=== PATIENT | female | born 1960 | race Caucasian/White ===

== ENCOUNTER → 2018-05-14 12:03 | Outpatient (CLI) | payer OTHER, SELFPAY ==
[2018-05-14 13:53] LABS: Absolute Lymphocyte Count 1.22 X10^3/ul (0.83-4.51); Absolute Neutrophil Count 4.3 X10^3/uL (2.0-7.7); Basophil# 0.01 X10^3/uL; Basophil% 0.2 % (0-1); Eosinophil# 0.08 X10^3/uL; Eosinophils% 1.3 % (0-5); Hematocrit 43.4 % (37-47); Hemoglobin 14.1 g/dl (12.0-15.0); Lymphocyte # 1.22 X10^3/ul (4.0); Lymphocyte % 20.1 % (19-41); Mean Corp Hgb Conc 32.5 g/gl (32-36); Mean Corpuscular Hgb 30.7 pg (27.0-32.0); Mean Corpuscular Volume 94.6 fL (81-99); Mean Platelet Vol. 13.9 fl (6.2-12.0); Monocyte% 6.6 % (0-10); Platelet Count 77 K/mm3 (150-450); RBC Distribution Width CV 14.9 % (11.6-14.6); RBC Distribution Width SD 50.4 fl (35.1-43.9); Red Blood Count 4.59 M/mm3 (4.2-5.4); White Blood Count 6.1 K/mm3 (4.4-11.0)
[2018-05-14 13:54] LABS: POSITIVE COUNT NO; POSITIVE DIFFERENTIAL NO; POSITIVE MORPHOLOGY NO
[2018-05-14 14:15] LABS: Vitamin B12 555 pg/mL (211-911); Vitamin D,25 Hydroxy 12.8 ng/mL (29.95-100.01)
[2018-05-14 14:22] LABS: AST(SGOT) 22 U/L (15-37); Alanine Aminotransfer ALT/SGPT 49 U/L (13-56); Albumin, Serum 4.1 g/dL (3.2-5.0); Alkaline Phosphatase 127 U/L (45-117); Anion Gap 11 (5-15); BUN 15 mg/dL (7-18); BUN/Creat Ratio 18.2 RATIO (10-20); Calcium,Total 8.9 mg/dL (8.5-10.1); Chloride 105 mmol/L (98-107); Creatinine, Serum 0.83 mg/dL (0.55-1.02); EST Glomerular Filtration Rate 76 mL/min (>60); Est Glom Filt Rate - Afr Amer 91 mL/min (>60); Glucose 117 mg/dL (74-106); Potassium 3.7 mmol/L (3.5-5.1); Protein, Total 8.1 g/dL (6.4-8.2); Sodium Level 141 mmol/L (136-145); Thyroid Stim Hormone (TSH) 1.33 uIU/mL (0.358-3.74)
== END ==
PROVIDERS: Family Provider Family Medicine; PCP Family Medicine; Referring Provider Family Medicine; Visit Provider Family Medicine
DX: D69.6 Thrombocytopenia, unspecified (principal); E03.9 Hypothyroidism, unspecified
CPT/HCPCS: 36415; 80053; 82306; 82607; 84443; 85025

== ENCOUNTER → 2018-11-19 09:51 | Outpatient (CLI) | payer OTHER, SELFPAY ==
[2017-06-24 15:12] VITALS: BMI 29.8
[2018-11-19 10:29] LABS: Absolute Lymphocyte Count 1.42 X10^3/uL (0.83-4.51); Basophil# 0.03 X10^3/uL; Basophil% 0.6 % (0-1); Eosinophil# 0.06 X10^3/uL; Eosinophils% 1.2 % (0-5); Hematocrit 40.3 % (37-47); Hemoglobin 13.2 g/dL (12.0-15.0); Lymphocyte # 1.42 X10^3/ul (4.0); Lymphocyte % 27.6 % (19-41); Mean Corp Hgb Conc 32.8 g/dL (32-36); Mean Corpuscular Hgb 30.6 pg (27.0-32.0); Mean Corpuscular Volume 93.5 fL (81-99); Monocyte# 0.59 X10^3/uL; Monocyte% 11.5 % (0-10); NRBC Flagged by Analyzer 0 % (0-5); Neutrophil # 2.99 X10^3/uL (2.7-7.7); Neutrophil % 58.1 % (47-70); Platelet Count 86 K/mm3 (150-450); RBC Distribution Width CV 15.2 % (11.6-14.6); Red Blood Count 4.31 M/mm3 (4.2-5.4); White Blood Count 5.1 K/mm3 (4.4-11.0)
[2018-11-19 11:26] LABS: ALB/GLOB Ratio 1.1 RATIO (0.9-2.4); AST(SGOT) 28 U/L (15-37); Alanine Aminotransfer ALT/SGPT 41 U/L (13-56); Albumin, Serum 3.9 g/dL (3.2-5.0); Alkaline Phosphatase 139 U/L (45-117); Anion Gap 6 (5-15); BUN 12 mg/dL (7-18); BUN/Creat Ratio 13.7 RATIO (10-20); Calcium,Total 8.9 mg/dL (8.5-10.1); Chloride 106 mmol/L (98-107); Cholesterol 223 mg/dL (200); Creatinine, Serum 0.88 mg/dL (0.55-1.02); EST Glomerular Filtration Rate 70 mL/min (>60); Est Glom Filt Rate - Afr Amer 85 mL/min (>60); Globulin 3.7 g/dL (2.2-4.2); Glucose 111 mg/dL (74-106); High Density Lipoprotein 30 mg/dL; Potassium 4.2 mmol/L (3.5-5.1); Protein, Total 7.6 g/dL (6.4-8.2); Sodium Level 140 mmol/L (136-145); Triglycerides 343 mg/dL; Very Low Density Lipoprotein 69 mg/dL (5-40)
== END ==
PROVIDERS: Family Provider Family Medicine; PCP Family Medicine; Referring Provider Family Medicine; Visit Provider Family Medicine
DX: R10.11 Right upper quadrant pain (principal); E78.00 Pure hypercholesterolemia, unspecified
CPT/HCPCS: 80053; 80061; 85025

== ENCOUNTER → 2018-11-22 08:36 | Outpatient (CLI) | payer OTHER, SELFPAY ==
[2017-06-24 15:12] VITALS: BMI 29.8
--- NOTE | 2018-11-22 08:40 | US_ITS ---
STUDY: ABDOMINAL ULTRASOUND - RIGHT UPPER QUADRANT REASON FOR VISIT: Female, 58 years old. Right upper quadrant pain TECHNIQUE: Ultrasound evaluation of the right upper quadrant was performed with real-time and static murray-scale imaging. TECHNICAL QUALITY: Adequate. COMPARISON: MR abdomen 09/10/2015 and abdominal ultrasound 11/28/2015. FINDINGS: Liver: The liver measures 17 cm. There is increased echogenicity consistent with fatty infiltration. The bile ducts are within normal limits. There is hepatic color flow. The direction of portal flow is hepatopetal. There is a 2.2 x 2.5 x 1.7 cm left hepatic lobe hypoechoic lesion. There is a 1.9 x 2.5 x 1.6 cm right hepatic lobe hypoechoic lesion. Gallbladder: The patient is status post cholecystectomy. Common Bile Duct (C.B.D.): The common bile duct measures 4 mm. Pancreas: Normal size of the head, body and tail of the pancreas. There is normal echogenicity of the pancreas. There is no demonstrated pancreatic mass or cyst. Right Kidney: Normal size of the right kidney. The right kidney measures 11.4 cm. Normal renal cortex. The right cortex measures 1.3 cm. There is no demonstrated renal mass or cyst. There is no right hydronephrosis. US/Abdomen Limited IMPRESSION: 1. Status post cholecystectomy. Normal caliber CBD. 2. Hepatic steatosis. 3. Again seen are scattered hepatic lesions consistent with previous abdominal MRI and ultrasound demonstrating hemangiomas. Electronically Signed: Marilia Melo, at 12:57 EDT Tel , Service support ,
== END ==
PROVIDERS: Family Provider Family Medicine; PCP Family Medicine; Referring Provider Family Medicine; Visit Provider Family Medicine
DX: R10.11 Right upper quadrant pain (principal)
CPT/HCPCS: 76705

== ENCOUNTER → 2019-02-18 07:04 | Outpatient (CLI) | payer OTHER, SELFPAY ==
[2019-02-18 10:11] LABS: Erythrocyte Sedimentation Rate 7 mm/hr (0-30)
[2019-02-18 10:30] LABS: Vitamin D,25 Hydroxy 21.8 ng/mL (29.95-100.01)
[2019-02-18 10:31] LABS: CRP 3.81 mg/L (0.0-3.0); Rheumatoid Factor < 10.0 IU/mL (<15)
[2019-02-21 16:31] LABS: ANTINUCLEAR ANTIBODIES DIRECT Negative (Negative)
== END ==
PROVIDERS: Family Provider Family Medicine; PCP Family Medicine; Referring Provider Family Medicine; Visit Provider Family Medicine
DX: E55.9 Vitamin D deficiency, unspecified (principal)
CPT/HCPCS: 36415; 82306; 84443; 85652; 86038; 86140; 86431

== ENCOUNTER → 2019-11-22 13:32 | Outpatient (CLI) | payer OTHER, SELFPAY ==
[2019-04-11 17:09] VITALS: BMI 29.8
--- NOTE | 2019-11-22 13:35 | VDLE_ITS ---
Reason For Study: pain in calf Procedure LEFT Exam performed in department. GSV is normal. The exam was diagnostic. CFV is compressible, spontaneous, phasic, A preliminary report was called and/or faxed competent, and demonstrates normal to Dr. Dove. augmentation. FV is compressible, spontaneous, phasic, competent and demonstrates normal augmentation. POP V is compressible, spontaneous, phasic, competent and demonstrates normal augmentation. T/P Trunk is compressible. PTV is compressible. LT PerV is compressible. Interpretation Summary Deep veins of the left lower extremity are patent and compressible segmentally. There is no evidence of left lower extremity deep vein thrombosis. Valvular competence appears intact within the proximal deep venous system on the left . The left great saphenous vein appears patent and compressible segmentally. Ordering Physician: Deuce Dove Performed By: Beny Kemp RVT
== END ==
PROVIDERS: PCP Family Medicine; Referring Provider Family Medicine; Visit Provider Family Medicine
DX: M79.662 Pain in left lower leg (principal)
CPT/HCPCS: 93971

== ENCOUNTER 2019-12-13 17:00 | Outpatient (RCR) | payer OTHER, SELFPAY ==
[2019-04-11 17:09] VITALS: BMI 29.8
--- NOTE | 2019-12-01 08:34 | HP.PTEVAL ---
Patient's Visit Information VALDEZ HERNANDEZ is a 59 year old F referred to Physical Therapy by Dr. Deuce Dove MD with a diagnosis of Left Gastroc Strain. Date of Evaluation: 11/30/19 Physical Therapist: Shereen Carlin DPT - Visit Plan Frequency: 2x /Week Duration: 4 Weeks - Subjective She reports that about a month ago- she climbs step stools at home- stepped off and it was further down than the anticipated. Pain on the left calf- a few weeks later- she jumped backwards and had excrutiating pain in the left calf. She hobbled around- iced it used biofreeze. She put it off for awhile- bruising all the way down but it was getting better. It just started hurting more and more- its now painful enough that she babies it. Pain is located along the whole calf and radiates to the anterior medial. Had a dopplar to rule out a blood clot- which was negative. Has good days and bad days. Worst: 3/10. Agg: going up stairs, pushing up the ramp in a w/c, turning- describes the pain as achy and cramping and other time its pretty sharp. Best: 0/10 Eases: biofreeze, ice and elevation. No radiating pain- A few times has N/T but it comes and goes. Shoes- sandles with good arch support- at home she wears flip flops that do bother her. 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 Sleep: not disturbed at this time. No images- PMHx: thyroid, ITP, Factor 5 Meds: synthroid. - Objective Posture: FH, RS, increased kyphosis. Gait: slightly antalgic- decreased stance ont he left LE poor heel/toe pattern. HR/TR: able with slight weight shift to the right with discomfort. Stairs: asc/desc 8 recip- pain with push off. SLS: 30 sec without LOB. ROM: DF: neutral with discomfort and tightness at end range, PF: 60 degrees Inver: 40 degrees Ever: 30 degrees, Knee: WNL. Strength: Ankle: DF: 4/5, PF: 4/5, Inver: 5/5, Ever: 5/5, Knee: 4+/5, Hip: 5/5. Flex: Gastroc: severe, Soleus: moderate, Hamstring: moderate. Palpatoin: tender throughout calf musculature- significant tenderness and trigger points throughout proximal gastroc. - Goals Goal 1:: Patient will be I with HEP and progression Goal Time Frame: 4-6 Weeks Goal 2:: Patient will ambulate >300 feet with a normalized gait pattern Goal Time Frame: 4-6 Weeks - Rehabilitation Potential Physical Therapy Diagnosis: Patient presents with hypomobility- she has decreased ROM,strength, flex and muscular endurance leading to abnormal gait and increased pain with ADL's. Rehabilitation Potential: Fair - Anticipated Interventions Thank you for the opportunity to evaluate your patient. For Medicare and Medicare HMO plans, please review the plan of care and approve it. It will need to be FAXED BACK to us at [phone] for Medicare purposes. For Medicare only, by signing this I certify the plan of care. Please let me know if there are questions or concerns regarding this plan of care. Physician Signature: Date:
--- NOTE | 2020-03-15 10:45 | HP.PTDCNRP_ITS ---
VALDEZ HERNANDEZ was seen in my office for initial evaluation on 11/30/19. The following Plan of Care was established for this patient: Initial Frequency: 2x /Week Initial Duration: 4 Weeks This patient was last seen in our office . Pertinent comments regarding their Physical therapy will appear below: Patient has not returned to PT in over 3 months- appropriate for discharge and return to MD for further evaluation. At this point I will be discontinuing this patient from physical therapy. I wou ld be happy to see this patient again in the future if found appropriate by the physician. Thank you! Shereen Carlin, HALIT
== END 2019-12-13 19:00 | disposition home or self-care (01) ==
LOC: PT 17:00
PROVIDERS: PCP Family Medicine; Referring Provider Family Medicine; Visit Provider Family Medicine
DX: S86.112D Strain of other muscle(s) and tendon(s) of posterior muscle group at lower leg level, left leg, subsequent encounter (principal)
CPT/HCPCS: 97035; 97110; 97140; 97161

== ENCOUNTER → 2019-12-24 09:39 | Outpatient (CLI) | payer OTHER, SELFPAY ==
[2019-04-11 17:09] VITALS: BMI 29.8
[2019-12-24 10:02] LABS: Absolute Neutrophil Count 3.8 X10^3/uL (2.0-7.7); Basophil# 0.03 X10^3/uL; Basophil% 0.5 % (0-1); Eosinophil# 0.06 X10^3/uL; Hematocrit 41.9 % (37-47); Hemoglobin 13.3 g/dL (12.0-15.0); Mean Corp Hgb Conc 31.7 g/dL (32-36); Mean Corpuscular Volume 94.4 fL (81-99); Mean Platelet Vol. 13.1 fl (6.2-12.0); Monocyte# 0.43 X10^3/uL; Monocyte% 7.4 % (0-10); NRBC Flagged by Analyzer 0 % (0-5); Neutrophil # 3.84 X10^3/uL (2.7-7.7); Neutrophil % 65.7 % (47-70); POSITIVE COUNT YES; Platelet Count 90 K/mm3 (150-450); RBC Distribution Width CV 15.2 % (11.6-14.6); Red Blood Count 4.44 M/mm3 (4.2-5.4); White Blood Count 5.8 K/mm3 (4.4-11.0)
[2019-12-24 10:36] LABS: Anion Gap 5 (5-15); BUN 16 mg/dL (7-18); BUN/Creat Ratio 19.2 RATIO (10-20); Calcium,Total 9.1 mg/dL (8.5-10.1); Chloride 102 mmol/L (98-107); Cholesterol 240 mg/dL (200); Creatinine, Serum 0.83 mg/dL (0.55-1.02); EST Glomerular Filtration Rate 74 mL/min (>60); Est Glom Filt Rate - Afr Amer 90 mL/min (>60); Glucose 102 mg/dL (74-106); High Density Lipoprotein 40 mg/dL; Sodium Level 138 mmol/L (136-145); Thyroid Stim Hormone (TSH) 2.52 uIU/mL (0.358-3.74); Triglycerides 282 mg/dL; Very Low Density Lipoprotein 56 mg/dL (5-40)
== END ==
PROVIDERS: PCP Family Medicine; Referring Provider Family Medicine; Visit Provider Family Medicine
DX: Z13.220 Encounter for screening for lipoid disorders (principal); Z13.1 Encounter for screening for diabetes mellitus; E03.9 Hypothyroidism, unspecified; D69.6 Thrombocytopenia, unspecified
CPT/HCPCS: 36415; 80048; 80061; 84443; 85025

== ENCOUNTER → 2020-01-09 17:19 | Outpatient (CLI) | payer OTHER, SELFPAY ==
[2019-04-11 17:09] VITALS: BMI 29.8
--- NOTE | 2020-01-09 17:21 | RAD_ITS ---
STUDY: X-RAY - SKULL REASON FOR EXAM: Female, 59 years old. Mass on right upper side of the skull, tender to touch. Has been present for years. TECHNIQUE: 3 view(s) of the skull were obtained. COMPARISON: None. FINDINGS: There is no demonstrated soft tissue swelling. Normal osseous calvarium. Area of mildly increased density overlying the upper parietal skull on the lateral view which cannot be identified on other images. Normal visualized facial bones. Normal visualized paranasal sinuses. RAD/Skull less than 4 Views IMPRESSION: Normal x-ray examination of the skull. Electronically Signed: Stephane Bhat DO at 17:05 EDT Tel [phone], Service support ,
== END ==
PROVIDERS: PCP Family Medicine; Referring Provider Family Medicine; Visit Provider Family Medicine
DX: R22.0 Localized swelling, mass and lump, head (principal)
CPT/HCPCS: 70250

== ENCOUNTER → 2020-01-17 09:08 | Outpatient (CLI) | payer OTHER, SELFPAY ==
[2019-04-11 17:09] VITALS: BMI 29.8
--- NOTE | 2020-01-17 18:12 | TILTTABLE_ITS ---
- Staff Staff: Xiomara Burleson, - - Mary Morrell - Summary Pre Test Resting HR: 86 - Alert and oriented: Warm and dry Pre Test Resting BP: 149/88 - Alert and oriented: Warm and dry Minimum Test HR: 81 - Alert and oriented: Warm and dry Maximum Test HR: 96 - Alert and oriented: Warm and dry Minimum Test BP: 126/85 - Alert and oriented: Hands cool Maximum Test BP: 163/93 - Alert and oriented: Warm and dry Reason for Test Termination: Reached Maximum Test Time Physician Tilt Table Report - Patient's Physicians Primary Care Physician: Deuce Dove Vice President Quality: Karson Le Indications/Diagnosis: Presyncope Procedure Comments: The patient presented to the tilt table laboratory and was alert and oriented and warm and dry. The baseline heart rate was 86 bpm with a baseline blood pressure 149/88 mmHg. The cardiac rhythm appeared to be normal sinus rhythm. The patient was placed in the 70 degree upright tilt table position for approximately 30 minutes. The patient remained alert and oriented. The minimal heart rate was 81 bpm and the minimal blood pressure was reported at 126/85 mmHg (at which time the patient was reported as her hands were cool) with a maximal heart rate of 96 bpm and a maximal blood pressure of 163/93 mmHg. The cardiac rhythm remained normal sinus rhythm with an isolated PVC. The patient did not lose consciousness. The patient did complain during this portion of the examination of a headache. The patient was returned to the supine position where she remained alert and oriented. The concluding heart rate was 89 bpm with a concluding blood pressure 155/86 mmHg. The patient's cardiac rhythm remained sinus rhythm. Summary: 70 degree upright tilt table study considered negative for reproducible near syncope/syncope. This note was generated using a voice recognition system and there may be incorrect words, spelling or punctuation that were not noted when reviewing the office note prior to saving.
[2020-01-17 18:19] VITALS: BP 126/85; BP 149/88; BP 163/93
== END ==
PROVIDERS: PCP Family Medicine; Referring Provider Family Medicine; Visit Provider Family Medicine
DX: R55 Syncope and collapse (principal)
CPT/HCPCS: 93660; J7040; A4216

== ENCOUNTER → 2020-01-20 08:59 | Outpatient (CLI) | payer OTHER, SELFPAY ==
[2019-04-11 17:09] VITALS: BMI 29.8
--- NOTE | 2020-01-20 09:09 | AAVD_ITS ---
Reason For Study: Family Hx of AAA Aorta Measurements Aorta Doppler Measurements Proximal aorta measures1.43 x 1.45cm. in cross- Peak systolic flow velocities within the proximal sectional axis. aorta measure 90.6 cm/sec. Proximal aorta measures1.43cm. in longitudinal Peak systolic flow velocities within the mid aorta axis. measure 107 cm/sec. Mid aorta measures1.06 x 1.03cm. in cross- Peak systolic flow velocities within the distal sectional axis. aorta measure 121.6 cm/sec. Mid aorta measures1.03cm. in longitudinal axis. Distal aorta measures1.20 x 1.21cm. in cross- sectional axis. Distal aorta measures1.19cm. in longitudinal axis. Left Iliac Artery Left iliac artery measures 0.70 x 0.70 cm. in the cross-sectional axis. Left iliac artery measures 0.73 cm. in the longitudinal axis. Peak systolic velocity in the left iliac artery measures 97.9 cm/sec. Right Iliac Artery Right iliac artery measures 0.80 x 0.80 cm. in the cross-sectional axis. Right iliac artery measures 0.80 cm. in the longitudinal axis. Peak systolic velocity in the right iliac artery measures 107 cm/sec. Procedure Aorta IVC Iliac vasculature or bypass grafts [id number]. Interpretation Summary The dimensions of the intra-abdominal aorta are normal, without evidence of aneurysmal dilatation. The iliac arteries appear normal in size bilaterally. The intra-abdominal aorta and iliac arteries appear patent, demonstrating normal, pulsatile arterial flow and normal peak systolic velocities. Ordering Physician: Deuce Dove Referring Physician: Deuce Dove Performed By: Dea Bryan RVT
== END ==
PROVIDERS: PCP Family Medicine; Referring Provider Family Medicine; Visit Provider Family Medicine
DX: Z82.49 Family history of ischemic heart disease and other diseases of the circulatory system (principal)
CPT/HCPCS: 93978

== ENCOUNTER → 2020-01-21 09:41 | Outpatient (CLI) | payer OTHER, SELFPAY ==
[2019-04-11 17:09] VITALS: BMI 29.8
--- NOTE | 2020-01-21 07:33 | US_ITS ---
HISTORY: RIGHT SCALP MASS AREA OF PALPABLE LUMP ADDITIONAL HISTORY: None provided. COMPARISON: Skull radiographs 01/09/2020 TECHNIQUE: High-resolution grayscale and color Doppler sonography of the region of clinical concern in the right scalp. Number of images including paperwork: 9 FINDINGS: A 4 x 2 x 2 mm cystic lesion is seen in the region of the palpable concern. US/Head/Neck Soft Tissue IMPRESSION: Small cyst in the region of clinical concern, possibly an epidermal cyst. at 1859 Reported and signed by: Mary Miner MD Electronically Signed: Mary Miner MD at 18:59 EDT Tel , Service support ,
== END ==
PROVIDERS: PCP Family Medicine; Referring Provider Family Medicine; Visit Provider Family Medicine
DX: R22.0 Localized swelling, mass and lump, head (principal)
CPT/HCPCS: 76536

== ENCOUNTER → 2020-01-23 08:41 | Outpatient (CLI) | payer OTHER, SELFPAY ==
[2019-04-11 17:09] VITALS: BMI 29.8
[2020-01-23 11:04] LABS: Vitamin D,25 Hydroxy 20.7 ng/mL
== END ==
PROVIDERS: PCP Family Medicine; Visit Provider Family Medicine
DX: E55.9 Vitamin D deficiency, unspecified (principal)
CPT/HCPCS: 36415; 82306

== ENCOUNTER → 2020-03-08 14:15 | Outpatient (CLI) | payer OTHER, SELFPAY ==
[2019-04-11 17:09] VITALS: BMI 29.8
== END ==
PROVIDERS: PCP Family Medicine; Visit Provider Family Medicine
DX: U07.1 COVID-19 (principal)
CPT/HCPCS: 87635; U0003

== ENCOUNTER 2020-03-20 17:50 | Emergency (ER) | payer OTHER, SELFPAY ==
[2019-04-11 17:09] VITALS: BMI 29.8
[2020-03-20] VITALS (7 sets, daily range): BP systolic 115–128; BP diastolic 54–87; PULSE 77–86; RESP 15–21; TEMP 36.6–37; O2SAT 94–100; BMI 29.8
--- NOTE | 2020-03-20 18:24 | EKG12_ITS ---
Test Reason : GEN ILLNESS Blood Pressure : / mmHG Vent. Rate : 071 BPM Atrial Rate : 071 BPM P-R Int : 142 ms QRS Dur : 080 ms QT Int : 406 ms P-R-T Axes : 046 007 011 degrees QTc Int : 441 ms Normal sinus rhythm Normal ECG Confirmed by LYNNETTE STONE, JORGE ALBERTO ([id number]), newspaper photo editor DADA DEWITT ([id number]) on 03/28/2020 10:10:40 AM Referred By: HYACINTH Confirmed By:CEDRICK CHURCH MD
--- NOTE | 2020-03-20 18:28 | ED.VIS.GEN ---
History of Present Illness Chief Complaint: General Illness Informant: Patient Narrative: 59-year-old female presenting with shortness of breath and difficulty swallowing. Has been able to get food and fluids in her although it is difficult. This is a new problem since she has been ill she is already finished her Covid?19 quarantine. She is concerned she is dehydrated. Her primary care doctor sent her in for lab work and a chest x-ray. She said she still having fevers up until 2 days ago but these are now broken. He has mild nausea. She is not having chest pain. She no longer has any chills or myalgias. - Past Medical History (1) Chronic ITP (idiopathic thrombocytopenia) Status: Chronic (2) Factor 5 Leiden mutation, heterozygous Status: Chronic Past Medical History - Allergies and Home Meds Allergies/Adverse Reactions: Allergies hexachlorophene [From Phisohex] Allergy (Verified 03/20/20 17:56) Itching codeine Adverse Reaction (Verified 03/20/20 17:56) Chest tightness nitrofurantoin macrocrystalline [From Macrodantin] Adverse Reaction (Verified 03/20/20 17:56) Nausea Primary Care Physician: Deuce Dove MD [Primary Care Provider] - Prior records reviewed: Yes Past Medical History: - - Reviewed in problem list Surgical History: noncontributory Lives: Spouse/ Significant Other Smoking Status: Never smoker Alcohol: None Drugs: None Review of Systems General: Reports: Fever, Malaise Eyes: Denies: Visual changes - bilaterally, Diplopia ENT: Reports: - - If occult he swallowing.. Denies: Rhinorrhea, Sore throat Cardiovascular: Denies: Chest pain, Palpitations Respiratory: Reports: Dyspnea, Cough. Denies: Dyspnea on exertion Gastrointestinal: Denies: Abdominal pain, Nausea, Vomiting, Diarrhea, Melena, Hematochezia Genitourinary: Denies: Dysuria, Hematuria, Frequency Musculoskeletal: Denies: Back pain, Extremity Pain Skin: Denies: Rash, Wounds Neurological: Denies: Headache, Parasthesia, Numbness Psych: Denies: Depression, Anxiety Physical Exam Vital Signs/Narrative: Vital Signs Temp Pulse Resp BP Pulse Ox 03/20/20 17:59 98 F 79 20 H 128/55 H 100 03/20/20 17:51 98.6 F 81 20 H 128/55 H 96 Inital Vital Signs reviewed: Yes General: Well nourished, No Acute Distress Head: Normocephalic, Atraumatic Eyes: Perrl, EOMI ENT: Moist mucous membranes, No rhinorrhea Cardiovascular: Regular rate, Regular rhythm Respiratory: No distress, CTA bilaterally, Chest nontender Extremities: Nontender, No edema Skin: Normal color, No rash. Negative for: Cyanosis, Diaphoresis Neurological: Alert, Oriented x3, Cranial nerves II-XII grossly intact, - - NIH = 0 Psychological: Normal affect Diagnostic/Tx/Re-eval Clinical Impression(s) from Imaging Studies Chest X-Ray 03/20/20 18:42 IMPRESSION: Moderate bilateral interstitial infiltrates Electronically Signed: Albert Evans MD at 19:29 EST , Service support , Soft Tissue Neck X-Ray 03/20/20 18:42 IMPRESSION: Calcification of laryngeal cartilages versus residual oral contrast versus foreign body. CT soft tissue neck recommended. Electronically Signed: Albert Evans MD at 19:51 EST , Service support , Brain CT 03/20/20 18:45 IMPRESSION: Normal unenhanced CT scan of the brain. Electronically Signed: Albert Evans MD at 19:25 EST , Service support , Chest CTA 03/20/20 19:11 IMPRESSION: Multifocal opacities typical for covid 19 other etiologies not excluded. Coronary artery disease. Incidental Hepatic mass. Recommend follow-up hepatic MRI to exclude neoplasm. Electronically Signed: Albert Evans MD at 19:59 EST , Service support , Soft Tissue Neck CT 03/20/20 20:14 IMPRESSION: Coarse calcification of the laryngeal cartilages. No radiodense foreign body. Bilateral pulmonary infiltrates typical for covid 19. Electronically Signed: Albert Evans MD at 20:57 EST , Service support , Laboratory Data 03/20/20 03/20/20 03/20/20 18:00 18:00 18:00 WBC RBC Hgb Hct MCV MCH MCHC RDW Std Deviation RDW Coeff of Mckenzie Plt Count MPV Immature Gran % (Auto) Neut % (Auto) Lymph % (Auto) [place] % (Auto) Eos % (Auto) Baso % (Auto) Absolute Neuts (auto) Absolute Lymphs (auto) Nucleated RBC % Atypical Lymphocytes D-Dimer Quant (PE/DVT) 1.94 H* Sodium 139 Potassium 3.2 L Chloride 104 Carbon Dioxide 26.0 Anion Gap 9 BUN 11 Creatinine 0.78 Estim Creat Clear Calc 61.42 Est GFR (MDRD) Af Amer 97 Est GFR (MDRD) Non-Af 80 BUN/Creatinine Ratio 14.1 Glucose 88 Calcium 8.1 L Total Bilirubin 1.00 AST 77 H ALT 104 H Alkaline Phosphatase 101 Troponin I < 0.015 Total Protein 7.3 Albumin 2.6 L Globulin 4.7 H Albumin/Globulin Ratio 0.6 L Procalcitonin 0.09 03/20/20 18:00 WBC 5.5 RBC 3.95 L Hgb 11.5 L Hct 35.9 L MCV 90.9 MCH 29.1 MCHC 32.0 RDW Std Deviation 48.2 H RDW Coeff of Mckenzie 14.4 Plt Count 164 MPV 13.8 H Immature Gran % (Auto) 2.700 H Neut % (Auto) 66.8 Lymph % (Auto) 20.7 [place] % (Auto) 7.7 Eos % (Auto) 1.6 Baso % (Auto) 0.5 Absolute Neuts (auto) 3.6 Absolute Lymphs (auto) 1.13 Nucleated RBC % 0.5 Atypical Lymphocytes 1+ D-Dimer Quant (PE/DVT) Sodium Potassium Chloride Carbon Dioxide Anion Gap BUN Creatinine Estim Creat Clear Calc Est GFR (MDRD) Af Amer Est GFR (MDRD) Non-Af BUN/Creatinine Ratio Glucose Calcium Total Bilirubin AST ALT Alkaline Phosphatase Troponin I Total Protein Albumin Globulin Albumin/Globulin Ratio Procalcitonin - Rhythm Strip Rhythm Strip: Sinus Rhythm Rate: 71 - EKG Initial EKG Interpretation: Sinus Rhythm, No Acute Injury Pattern - Medical Decision Making 59-year-old female presenting for evaluation after recovering from her quarantine after having Covid?19. Patient states that her fever stopped being a problem a couple of days ago. She does not have vomiting but has difficulty swallowing. She has difficulty especially with pills and liquids. She has been able to get some down but she has to force it. Her primary care sent her in for evaluation. Patient does have some residual shortness of breath. I obtained an EKG which is normal sinus rhythm at 71 bpm without ischemic change as interpreted by myself. Chest x-ray as interpreted by myself and the radiologist shows bilateral multifocal infiltrates. Lab work shows normal renal function. CBC shows no leukocytosis. Procalcitonin negative. D-dimer was elevated and she had CTA of the chest which was significant only for multifocal pneumonia. This is likely residual from her Covid?19. I did obtain a CT of the brain given her difficulty swallowing. Her NIH was 0. The CT was negative for acute process. I do not believe she needs to be admitted for further work-up of stroke. Patient had x-ray of the soft tissue of the neck which the radiologist read as calcifications versus foreign body versus residual contrast. Since the patient is having difficulty swallowing I did follow-up with a CT of the left tissues of the neck which was normal. Patient will be discharged home with her daughter. She will be given Zofran to see if that helps her eat. Patient will follow up with her primary care physician. Patient discharged in stable condition. Impression: 1. History of Covid?19 pneumonia 2. Dysphagia 3. Concern for dehydration ED Disposition - Plan for ED Patient: Referrals: Deuce Dove MD [Primary Care Provider] -
--- NOTE | 2020-03-20 18:42 | RAD_ITS ---
STUDY: X-RAY - SOFT TISSUE NECK REASON FOR EXAM: Female, 59 years old. PT QUARANTINE FOR COVID ENDED YESTERDAY. HAVING SOB, COUGH, FEVER, AND DIFFICULTY SWALLOWING. TECHNIQUE: 2 view(s) of the neck were obtained. COMPARISON: None. FINDINGS: Irregular radiodensities noted along the arytenoids thyroid cricoid cartilage. Normal visualized nasopharynx, oropharynx, hypopharynx. Normal epiglottis. Normal visualized subglottic tracheal air column. Normal prevertebral soft tissue structures. Normal visualized osseous structures. The soft tissue structures are unremarkable. RAD/Neck for Soft Tissue IMPRESSION: Calcification of laryngeal cartilages versus residual oral contrast versus foreign body. CT soft tissue neck recommended. Electronically Signed: Albert Evans MD at 19:51 EST , Service support ,
--- NOTE | 2020-03-20 18:42 | RAD_ITS ---
STUDY: X-RAY CHEST REASON FOR EXAM: Female, 59 years old. PT QUARANTINE FOR COVID ENDED YESTERDAY. HAVING SOB, COUGH, FEVER, AND DIFFICULTY SWALLOWING. TECHNIQUE: Single frontal view of the chest. COMPARISON: 09/19/2015 FINDINGS: Bilateral interstitial infiltrates. There is no demonstrated pleural abnormality. Normal size heart. Normal mediastinum and talha. Normal visualized pulmonary arteries. Normal visualized aortic arch and descending thoracic aorta. Normal visualized thoracic spine. Normal visualized ribs, clavicles, and shoulders. There is no demonstrated abnormality of the visualized soft tissue structures of the upper abdomen. RAD/Chest 1 View (Portable) IMPRESSION: Moderate bilateral interstitial infiltrates Electronically Signed: Albert vEans MD at 19:29 EST , Service support ,
[2020-03-20 18:44] LABS: D-Dimer Quantitative (DVT/PE) 1.94 FEU/ug/m (0.27-0.49)
--- NOTE | 2020-03-20 18:45 | CT_ITS ---
STUDY: CT BRAIN WITHOUT CONTRAST REASON FOR EXAM: Female, 59 years old. SOB, COUGH, FEVER AND DIFFICULTY SWALLOWING RADIATION DOSAGE (If Supplied By Facility): CTDIvol = ( 44.99 ) mGy, DLP = ( 779.24 ) mGycm TECHNIQUE: Transaxial CT imaging of the brain was performed without administration of intravenous contrast material. Individualized dose optimization techniques were used for this CT. COMPARISON: No relevant priors. FINDINGS: Normal soft tissue structures. Normal calvarium. 2 small calcific enostosis along the inner table on the right parietal calvarium. Normal size ventricles and extra-axial spaces for the patient''s age. Normal white matter tracts of the cerebral hemispheres. Normal basal ganglia and thalami. Normal brainstem. Normal cerebellum. There is no intracranial hemorrhage. There are no findings of an acute ischemic infarction. Normal visualized paranasal sinuses. CT/Brain/Head without Contrast IMPRESSION: Normal unenhanced CT scan of the brain. Electronically Signed: Albert Evans MD at 19:25 EST , Service support ,
[2020-03-20 18:48] LABS: ALB/GLOB Ratio 0.6 RATIO (0.9-2.4); AST(SGOT) 77 U/L (15-37); Alanine Aminotransfer ALT/SGPT 104 U/L (13-56); Albumin, Serum 2.6 g/dL (3.2-5.0); Alkaline Phosphatase 101 U/L (45-117); Anion Gap 9 (5-15); BUN 11 mg/dL (7-18); BUN/Creat Ratio 14.1 RATIO (10-20); Calcium,Total 8.1 mg/dL (8.5-10.1); Chloride 104 mmol/L (98-107); Creatinine, Serum 0.78 mg/dL (0.55-1.02); EST Glomerular Filtration Rate 80 mL/min (>60); Est Glom Filt Rate - Afr Amer 97 mL/min (>60); Estimated Creatinine Clearance 61.42 ml/min; Globulin 4.7 g/dL (2.2-4.2); Glucose 88 mg/dL (74-106); Potassium 3.2 mmol/L (3.5-5.1); Protein, Total 7.3 g/dL (6.4-8.2); Sodium Level 139 mmol/L (136-145)
[2020-03-20 18:57] LABS: Procalcitonin 0.09 ng/mL (0.00-0.09)
[2020-03-20] MEDS: Ondansetron 4 MG/2 ML Vial IV (19:11)
--- NOTE | 2020-03-20 19:11 | CT_ITS ---
STUDY: CTA CHEST REASON FOR EXAM: Female, 59 years old. SOB,FEVER,COUGH AND DIFFICULTY SWALLOWING RADIATION DOSAGE (If Supplied By Facility): CTDIvol = ( 10.66 ) mGy, DLP = ( 355.21 ) mGycm TECHNIQUE: The examination was performed with the intravenous administration of IV 100mL [id number]-[id number]. Post-processing of the angiographic images was performed, with multiplanar reformation and 3D reconstruction. Individualized dose optimization techniques were used for this CT. COMPARISON: Chest x-ray 03/20/2020 and CTA chest 08/24/2013 FINDINGS: Normal enhancement of the main pulmonary artery and right and left pulmonary arteries. Normal enhancement of the bilateral peripheral pulmonary arteries. There is no demonstrated pulmonary embolism. Normal thoracic aorta and visualized great vessels. There is no demonstrated aortic dissection. Normal heart and pericardium. Calcific coronary artery disease. Normal mediastinum. Normal hilar regions. Normal visualized trachea and bronchi. Bilateral peripheral groundglass multifocal opacities. Normal pulmonary parenchyma. Normal pleura. Normal chest wall structures. Normal osseous structures. 3.4 cm exophytic mass right lobe of the liver. CT/CTA Chest W/WO Contrast IMPRESSION: Multifocal opacities typical for covid 19 other etiologies not excluded. Coronary artery disease. Incidental Hepatic mass. Recommend follow-up hepatic MRI to exclude neoplasm. Electronically Signed: Albert Evans MD at 19:59 EST , Service support ,
[2020-03-20 20:14] LABS: Absolute Lymphocyte Count 1.13 X10^3/uL (0.83-4.51); Absolute Neutrophil Count 3.6 X10^3/uL (2.0-7.7); Basophil# 0.03 X10^3/uL; Basophil% 0.5 % (0-1); Eosinophil# 0.09 X10^3/uL; Eosinophils% 1.6 % (0-5); Hematocrit 35.9 % (37-47); Hemoglobin 11.5 g/dL (12.0-15.0); Lymphocyte # 1.13 X10^3/ul (4.0); Lymphocyte % 20.7 % (19-41); Mean Corpuscular Hgb 29.1 pg (27.0-32.0); Mean Corpuscular Volume 90.9 fL (81-99); Mean Platelet Vol. 13.8 fl (6.2-12.0); Monocyte# 0.42 X10^3/uL; Monocyte% 7.7 % (0-10); NRBC Flagged by Analyzer 0.5 % (0-5); Neutrophil # 3.64 X10^3/uL (2.7-7.7); Neutrophil % 66.8 % (47-70); POSITIVE MORPHOLOGY YES; Platelet Count 164 K/mm3 (150-450); RBC Distribution Width CV 14.4 % (11.6-14.6); RBC Distribution Width SD 48.2 fl (35.1-43.9); Red Blood Count 3.95 M/mm3 (4.2-5.4); White Blood Count 5.5 K/mm3 (4.4-11.0)
--- NOTE | 2020-03-20 20:14 | CT_ITS ---
STUDY: CT SOFT TISSUE NECK WITHOUT CONTRAST REASON FOR EXAM: Female, 59 years old. DIFFICULTY SWALLOWING/ABN XRAY RADIATION DOSAGE (If Supplied By Facility): CTDIvol = ( 17.07 ) mGy, DLP = ( 481.83 ) mGycm TECHNIQUE: The patient was scanned in a multi-detector CT scanner. High resolution transaxial imaging was performed without the administration of intravenous contrast material. Sagittal and coronal images were reconstructed. Individualized dose optimization techniques were used for this CT. COMPARISON: Soft tissue neck from today FINDINGS: Normal bilateral parotid glands. Normal bilateral statuary painter spaces. Normal bilateral parapharyngeal spaces. Normal bilateral carotid spaces. Normal bilateral sublingual and submandibular glands and spaces. Normal visualized nasopharynx. Normal retropharyngeal space. Normal perivertebral space. Normal visualized bilateral faucial tonsils. The visualized tongue, tongue base and oropharynx are normal. The visualized cervical lymph nodes (levels I-) are within normal size limits, and maintain normal morphology. There is no demonstrated solid or cystic mass lesion. Normal epiglottis, bilateral vallecula and hypopharynx. The pre-epiglottic and paraglottic adipose spaces are normal. Normal visualized bilateral piriform sinuses, aryepiglottic folds, vocal cords, and arytenoid-cricoid articulations. Normal subglottic trachea. Normal bilateral lobes of the thyroid gland. Bilateral peripheral groundglass infiltrates. Normal visualized paranasal sinuses. Normal visualized cervical spine. CT/Soft Tissue Neck without Contr IMPRESSION: Coarse calcification of the laryngeal cartilages. No radiodense foreign body. Bilateral pulmonary infiltrates typical for covid 19. Electronically Signed: Albert Evans MD at 20:57 EST , Service support ,
[2020-03-20 20:26] LABS: Differential Indicated SCAN CRITERIA MET
[2020-03-20 20:41] LABS: Atypical Lymphocyte 1+ %
== END 2020-03-20 21:36 | disposition home or self-care (01) ==
PROVIDERS: Emergency Provider Student in an Organized Health Care Education/Training Program; PCP Family Medicine
DX: R06.02 Shortness of breath (principal); R13.10 Dysphagia, unspecified; R16.0 Hepatomegaly, not elsewhere classified; R91.8 Other nonspecific abnormal finding of lung field; I25.10 Atherosclerotic heart disease of native coronary artery without angina pectoris; R50.9 Fever, unspecified; D68.51 Activated protein C resistance; D69.3 Immune thrombocytopenic purpura; Z88.5 Allergy status to narcotic agent; Z87.01 Personal history of pneumonia (recurrent); Z86.19 Personal history of other infectious and parasitic diseases
CPT/HCPCS: 70360; 70450; 70490; 71045; 71275; 80048; 80053; 84145; 84484; 85025; 85379; 93005; 96361; 96372; 96374; 99285; J7030; Q9967; A4216; J2405

== ENCOUNTER → 2020-04-03 14:00 | Outpatient (CLI) | payer OTHER, SELFPAY ==
[2020-03-20 17:51] VITALS: BMI 29.8
--- NOTE | 2020-04-03 14:10 | MRI_ITS ---
ACR Level 3 findings have been noted. An addendum which confirms receipt of the report will follow. STUDY: MRI ABDOMEN WITH AND WITHOUT CONTRAST REASON FOR EXAM: Female, 59 years old. Exophytic mass right lobe of liver TECHNIQUE: Standardized fat and water weighted pulse sequences were obtained in all 3 orthogonal planes post contrast administration. IV Yes YES was administered for the contrast portion of the examination. COMPARISON: CTA chest 03/20/2020. CT abdomen 08/31/2015, CTA chest 08/24/2013. FINDINGS: No pleural effusion. Heart size is normal. The spleen, pancreas, adrenal glands, and kidneys are unremarkable. There is a 4.9 x 3.2 4.8 cm lesion in the posterior segment of the liver superiorly (Couinaud segment VII). The lesion is exophytic and displaces the adrenal gland medially. The lesion is hypointense on T1 and moderately hyperintense on T2-weighted imaging. Following the administration of contrast, there is heterogeneous, near complete enhancement. MR characteristics are not consistent with simple cyst or hemangioma. This lesion appears grossly stable compared to prior studies. Several additional enhancing lesions are noted. 2.2 x 1.6 cm lesion in the lateral segment. 1.6 x 1.3 cm lesion in the anterior segment, and 1.2 cm lesion in the posterior segment inferiorly. These lesions are isointense to the larger exophytic lesion on T1 and T2-weighted imaging and demonstrate peripheral enhancement on early postcontrast phases with complete with homogeneous, complete enhancement on delayed images. These lesions are demonstrated on earlier studies. No demonstrated adenopathy or ascites. MRI/MRI Abd WITH and W/O Contrast IMPRESSION: 1. Multiple hepatic lesions as described above. These appear stable compared to earlier studies and are probably benign. Differential considerations include: Adenomas, focal nodular hyperplasia. If there is history of cirrhosis, regenerating nodules are a consideration and one-year CT follow-up is recommended. Electronically Signed: Albertina Caldwell MD at 16:54 EST Tel , Service support ,
== END ==
PROVIDERS: PCP Family Medicine; Referring Provider Family Medicine; Visit Provider Family Medicine
DX: K76.9 Liver disease, unspecified (principal)
CPT/HCPCS: 74183; A9575

== ENCOUNTER → 2020-04-05 09:05 | Outpatient (CLI) | payer OTHER, SELFPAY ==
[2020-03-20 17:51] VITALS: BMI 29.8
[2020-04-05 10:13] LABS: Absolute Lymphocyte Count 1.66 X10^3/uL (0.83-4.51); Absolute Neutrophil Count 3.6 X10^3/uL (2.0-7.7); Basophil# 0.01 X10^3/uL; Basophil% 0.2 % (0-1); Eosinophil# 0.06 X10^3/uL; Hemoglobin 10.9 g/dL (12.0-15.0); Lymphocyte # 1.66 X10^3/ul (4.0); Lymphocyte % 27.4 % (19-41); Mean Corp Hgb Conc 29.5 g/dL (32-36); Mean Corpuscular Hgb 28.6 pg (27.0-32.0); Mean Corpuscular Volume 97.1 fL (81-99); Mean Platelet Vol. 13.1 fl (6.2-12.0); Monocyte# 0.67 X10^3/uL; Monocyte% 11.1 % (0-10); NRBC Flagged by Analyzer 0 % (0-5); Neutrophil # 3.62 X10^3/uL (2.7-7.7); Neutrophil % 59.8 % (47-70); Platelet Count 130 K/mm3 (150-450); RBC Distribution Width CV 15.8 % (11.6-14.6); RBC Distribution Width SD 55.3 fl (35.1-43.9); Red Blood Count 3.81 M/mm3 (4.2-5.4); White Blood Count 6.1 K/mm3 (4.4-11.0)
[2020-04-05 10:35] LABS: ALB/GLOB Ratio 0.7 RATIO (0.9-2.4); AST(SGOT) 29 U/L (15-37); Alanine Aminotransfer ALT/SGPT 51 U/L (13-56); Albumin, Serum 3.2 g/dL (3.2-5.0); Alkaline Phosphatase 114 U/L (45-117); Anion Gap 5 (5-15); BUN 12 mg/dL (7-18); BUN/Creat Ratio 16.6 RATIO (10-20); Calcium,Total 8.9 mg/dL (8.5-10.1); Chloride 104 mmol/L (98-107); Creatinine, Serum 0.72 mg/dL (0.55-1.02); EST Glomerular Filtration Rate 87 mL/min (>60); Est Glom Filt Rate - Afr Amer 106 mL/min (>60); Globulin 4.3 g/dL (2.2-4.2); Glucose 97 mg/dL (74-106); Potassium 4.5 mmol/L (3.5-5.1); Protein, Total 7.5 g/dL (6.4-8.2); Sodium Level 139 mmol/L (136-145)
== END ==
PROVIDERS: PCP Family Medicine; Visit Provider Family Medicine
DX: R74.01 Elevation of levels of liver transaminase levels (principal)
CPT/HCPCS: 36415; 80053; 85025

== ENCOUNTER → 2020-04-26 16:28 | Outpatient (CLI) | payer SELFPAY ==
[2020-03-20 17:51] VITALS: BMI 29.8
[2020-04-26 17:32] LABS: Platelet Count 110 K/mm3 (150-450); RET-HE 31.7 pg (30-35); Reticulocyte Count 3.81 % (0.5-1.5)
[2020-04-26 18:13] LABS: Vitamin B12 497 pg/mL (211-911)
[2020-04-26 18:40] LABS: Ferritin 576 ng/mL (8-252); Iron 70 ug/dL (50-170); Iron Binding Capacity,Total 277 ug/dL (250-450); Thyroid Stim Hormone (TSH) 1.39 uIU/mL (0.358-3.74)
== END ==
PROVIDERS: PCP Family Medicine; Referring Provider Family Medicine; Visit Provider Family Medicine
DX: D64.9 Anemia, unspecified (principal); R53.83 Other fatigue
CPT/HCPCS: 36415; 82607; 82728; 82746; 83540; 83550; 84443; 85045

== ENCOUNTER → 2020-07-18 08:02 | Outpatient (CLI) | payer OTHER, SELFPAY ==
[2020-03-20 17:51] VITALS: BMI 29.8
[2020-07-18 11:00] LABS: Free T3 2.7 pg/mL (2.18-3.98); T4 Free Direct 1.16 ng/dL (0.76-1.46); Thyroid Stim Hormone (TSH) 2.82 uIU/mL (0.358-3.74)
== END ==
PROVIDERS: PCP Family Medicine; Referring Provider Family Medicine; Visit Provider Family Medicine
DX: E03.9 Hypothyroidism, unspecified (principal)
CPT/HCPCS: 36415; 84439; 84443; 84481

== ENCOUNTER → 2020-12-07 10:14 | Outpatient (CLI) | payer OTHER, SELFPAY ==
[2020-12-07 12:08] LABS: Absolute Neutrophil Count 3.3 X10^3/uL (2.0-7.7); Basophil# 0.03 X10^3/uL; Basophil% 0.6 % (0-1); Eosinophil# 0.07 X10^3/uL; Eosinophils% 1.3 % (0-5); Hematocrit 41.8 % (37-47); Hemoglobin 13.7 g/dL (12.0-15.0); Lymphocyte % 29.5 % (19-41); Mean Corp Hgb Conc 32.8 g/dL (32-36); Mean Corpuscular Hgb 30.6 pg (27.0-32.0); Mean Corpuscular Volume 93.3 fL (81-99); Mean Platelet Vol. 13.4 fl (6.2-12.0); Monocyte# 0.41 X10^3/uL; Monocyte% 7.6 % (0-10); NRBC Flagged by Analyzer 0 % (0-5); Neutrophil # 3.27 X10^3/uL (2.7-7.7); Neutrophil % 60.3 % (47-70); POSITIVE COUNT YES; Platelet Count 91 K/mm3 (150-450); RBC Distribution Width CV 14.6 % (11.6-14.6); RBC Distribution Width SD 50.3 fl (35.1-43.9); Red Blood Count 4.48 M/mm3 (4.2-5.4); White Blood Count 5.4 K/mm3 (4.4-11.0)
[2020-12-07 12:11] LABS: Differential Indicated SCAN CRITERIA MET
[2020-12-07 12:34] LABS: Differential Comment SCANNED; Platelet Estimate MOD DEC (ADEQ)
[2020-12-07 13:42] LABS: AST(SGOT) 26 U/L (15-37); Alanine Aminotransfer ALT/SGPT 51 U/L (13-56); Albumin, Serum 3.9 g/dL (3.2-5.0); Alkaline Phosphatase 131 U/L (45-117); Anion Gap 4 (5-15); BUN 16 mg/dL (7-18); BUN/Creat Ratio 21.8 RATIO (10-20); Calcium,Total 8.8 mg/dL (8.5-10.1); Chloride 106 mmol/L (98-107); Creatinine, Serum 0.73 mg/dL (0.55-1.02); EST Glomerular Filtration Rate 86 mL/min (>60); Est Glom Filt Rate - Afr Amer 104 mL/min (>60); Free T3 2.7 pg/mL (2.18-3.98); Globulin 3.9 g/dL (2.2-4.2); Glucose 111 mg/dL (74-106); Potassium 3.7 mmol/L (3.5-5.1); Protein, Total 7.8 g/dL (6.4-8.2); Sodium Level 138 mmol/L (136-145); Thyroid Stim Hormone (TSH) 3.66 uIU/mL (0.358-3.74)
== END ==
PROVIDERS: PCP Family Medicine; Referring Provider Family Medicine; Visit Provider Family Medicine
DX: E03.9 Hypothyroidism, unspecified (principal)
CPT/HCPCS: 80053; 84439; 84443; 84481; 85025

== ENCOUNTER → 2021-08-13 | Outpatient (CLI) | payer OTHER, SELFPAY ==
--- NOTE | 2021-08-13 15:46 | BI_ITS ---
MAMMOGRAPHY - BILATERAL SCREENING REASON FOR EXAM: Female, 60 years old. Routine annual screening examination. PERTINENT HISTORY: Non-contributory. Remote right excisional breast biopsy. TECHNIQUE: Digital bilateral breast john (3D mammographic acquisition) in the CC and MLO projections. 2-D mediolateral oblique (MLO) and craniocaudad (CC) views of both breasts were obtained. CAD: Full Field Digital Mammography with Computer Added Detection was performed. COMPARISON: Comparison is made with prior study dated 09/27/2013 and 06/19/2017. FINDINGS: Breast Composition: The breasts are heterogeneously dense, which may obscure small masses. There is a 1.2 cm x 1 cm well-defined nodular density in the upper deep lateral aspect of the left breast. Correlation with ultrasound is recommended. Stable benign appearing bilateral axillary lymph nodes. A tissue clip marker is seen in the mid aspect of the right breast. No other significant abnormalities are identified. BI/SCRN MAMM (CAD)W/JOHN BILAT IMPRESSION: 1.2 cm x 1 cm well-defined nodule in the deep lateral aspect of the left breast. Correlation with ultrasound is recommended. ASSESSMENT CATEGORY: BIRADS Category 0: Incomplete. Need additional imaging evaluation. A letter regarding these results will be sent to the patient by the facility within 30 days. Approximately 10% of breast cancers are not detected by mammography. A normal mammogram should not delay biopsy of a clinically suspicious abnormality. [id number] Electronically Signed: Des Trejo MD at 8:53 EDT ,
== END | disposition home or self-care (01) ==
PROVIDERS: PCP Registered Nurse; Referring Provider Registered Nurse; Visit Provider Registered Nurse
DX: Z12.31 Encounter for screening mammogram for malignant neoplasm of breast (principal)
CPT/HCPCS: 77063; 77067

== ENCOUNTER → 2021-08-14 | Outpatient (CLI) | payer OTHER, SELFPAY ==
--- NOTE | 2021-08-14 14:56 | CT_ITS ---
EXAM: CT ABDOMEN WITH INTRAVENOUS CONTRAST CLINICAL INDICATION: hepatic lesions TECHNIQUE: Helically acquired images were obtained of the abdomen with intravenous contrast. This CT exam was performed using one or more of the following dose reduction techniques: automated exposure control, adjustment of the mA and/or kV according to patient size, and/or use of iterative reconstruction technique. This report was created using [employer] report generation technology. CONTRAST: IV 100mL Isovue-300 RADIATION DOSE: CTDIvol = 15.63 mGy, DLP = 528.36 mGy-cm COMPARISON: 5.17.16 ct. MRI of Apr 03 2020 2:45pm FINDINGS: LOWER THORAX: Unremarkable. Lung bases are clear. No cardiomegaly. No significant pericardial effusion. LIVER: Fatty liver. Multiple hepatic lesions are again identified. This was previously evaluated with MRI on 2019. ACR White Paper guidelines (Tanvi, et al. JACR 2017; 14(11):8699-8574.) suggest the following. For patients with low risk of malignancy, recommend hepatic MR. For patients with high risk of malignancy (known malignancy with a propensity to metastasize to the liver, cirrhosis, and/or other hepatic risk factors), recommend hepatic MR or core biopsy. 18 mm ring enhancing lesion in the left lobe of the liver. 21 mm ring enhancing lesion in the right lobe of the liver. 31 mm lobulated irregular enhancing lesion in the right medial lobe of the liver. GALLBLADDER AND BILE DUCTS: Unremarkable. No calcified gallstones. No gallbladder distention or wall edema. No intra- or extrahepatic biliary ductal dilation. PANCREAS: Unremarkable. No focal cystic or solid mass. SPLEEN: Enlarged spleen. ADRENALS: Unremarkable. No nodules. KIDNEYS AND URETERS: Unremarkable. Normal renal size and position. No hydronephrosis. STOMACH AND BOWEL: Focal wall thickening of the antrum of stomach. This can suggest a gastritis. No stomach or bowel distention. INTRAPERITONEAL SPACE: Unremarkable. No ascites or other fluid collection. No free air. BONES/JOINTS: Unremarkable. No suspicious lytic or blastic abnormality. SOFT TISSUES: Unremarkable. No discrete abdominal wall hernia. VASCULATURE: There are calcifications of the abdominal aorta. This is consistent for atherosclerotic disease. There is NO abdominal aortic aneurysm. Vascular workup can be obtained based on clinical correlation. LYMPH NODES: No enlarged lymph nodes. CT/Abdomen WITH IV Contrast IMPRESSION: 1. Fatty liver. 2. Multiple hepatic lesions are again identified. This was previously evaluated with MRI on 2019. ACR White Paper guidelines (Tanvi, et al. JACR 2017; 14(11):3538-9031.) suggest the following. For patients with low risk of malignancy, recommend hepatic MR. For patients with high risk of malignancy (known malignancy with a propensity to metastasize to the liver, cirrhosis, and/or other hepatic risk factors), recommend hepatic MR or core biopsy. 3. Enlarged spleen. 4. Focal wall thickening of the antrum of stomach. This can suggest a gastritis. Electronically Signed: Mal Cronin MD at 16:31 EDT ,
== END | disposition home or self-care (01) ==
LOC: CT 14:53
PROVIDERS: PCP Registered Nurse; Referring Provider Registered Nurse; Visit Provider Registered Nurse
DX: K76.9 Liver disease, unspecified (principal)
CPT/HCPCS: 74160; Q9967

== ENCOUNTER → 2021-08-15 | Outpatient (CLI) | payer OTHER, SELFPAY ==
--- NOTE | 2021-08-15 10:28 | US_ITS ---
STUDY: ULTRASOUND BREAST - LEFT REASON FOR EXAM: Female, 60 years old. Abnormal screening mammogram. TECHNIQUE: Axial and longitudinal images of the LEFT breast were performed with a high resolution ultrasound transducer. # OF IMAGES: 22 COMPARISON: Comparison is made with prior mammogram dated 08/13/2021. FINDINGS: LEFT Breast: The mammographic abnormality corresponds to a 1 cm x 1 cm x 1.1 cm lobulated hypoechoic nodule at the 3 o''clock position of the breast at 4 cm from nipple. Biopsy recommended. US/Breast Limited Unilateral IMPRESSION: The mammographic and amount and corresponds to a 1 cm x 1 cm x 1.1 MILLIE level. Hypoechoic nodule at the 2 o''clock position of the breast at 4 cm from nipple. Biopsy recommended. ASSESSMENT CATEGORY: BIRADS Category 4: Suspicious - Biopsy Should Be Considered. A letter regarding these results will be sent to the patient by the facility within 30 days. Electronically Signed: Des Trejo MD at 11:57 EDT ,
== END | disposition home or self-care (01) ==
LOC: OPUS 10:27
PROVIDERS: PCP Registered Nurse; Visit Provider Registered Nurse
DX: R92.2 Inconclusive mammogram (principal)
CPT/HCPCS: 76642

== ENCOUNTER → 2021-08-20 | Outpatient (CLI) | payer OTHER, SELFPAY ==
--- NOTE | 2021-08-20 | BRBX_PTH ---
PATIENT: VALDEZ HERNANDEZ LOC: [facility] U#:[id number] AGE/SX: 60/F ROOM: RE08/20/[address]: Dr. Aldo Rainey MD : 1960 BED: DIS: 08/20/2021 SPEC #: [id number] RECD: 08/20/21 15:05 STATUS: PARRISH MG #: [id number] NORMA: 08/20/21 00:[address]: Aldo Rainey DEPT: SURGICAL PATHOLOGY RECD BY: Travis Lira ENTERED: 08/21/21 09:15 SP TYPE: BREAST BX OTHR DR: Shawna Jacobsen, BOATWRIGHT-C Tissues: Left breast, NOS Procedures: Surgery Specimen Level IV HEADER OPERATION: Left breast core biopsy PRE-OP DIAGNOSIS: Abnormal left breast ultrasound TISSUE SUBMITTED: Left breast tissue MICROSCOPIC DIAGNOSIS Left breast, core biopsy: Fragments of benign breast tissue with focal dense fibrosis and ductal dilatation. Negative for atypia or malignancy. Focal microcalcification. See comment. AUTUMN:johnny 08/22/2021 COMMENT Correlation with clinical, radiologic findings and appropriate follow up are necessary. MICROSCOPIC DESCRIPTION Slides are reviewed. GROSS DESCRIPTION Received in fixative is one container labeled with the patient's name and designated left breast. The specimen consists of multiple elongated fragments of ramos-yellow fibroadipose tissue that in aggregate measure 1 x 0.5 x 0.1 cm. The entire specimen is submitted in one cassette. / AUTUMN:johnny 08/21/2021 TC:5 CPT: 75719
[2021-08-20 10:12] LABS: Vitamin D,25 Hydroxy 20.9 ng/mL
[2021-08-20 10:49] LABS: AST(SGOT) 25 U/L (15-37); Alanine Aminotransfer ALT/SGPT 47 U/L (13-56); Albumin, Serum 3.8 g/dL (3.2-5.0); Alkaline Phosphatase 127 U/L (45-117); Anion Gap 6 (5-15); BUN 18 mg/dL (7-18); BUN/Creat Ratio 20.1 RATIO (10-20); Calcium,Total 8.6 mg/dL (8.5-10.1); Chloride 105 mmol/L (98-107); Cholesterol 284 mg/dL (200); EST Glomerular Filtration Rate 68 mL/min (>60); Est Glom Filt Rate - Afr Amer 82 mL/min (>60); Globulin 3.7 g/dL (2.2-4.2); Glucose 134 mg/dL (74-106); High Density Lipoprotein 23 mg/dL; Potassium 4.2 mmol/L (3.5-5.1); Protein, Total 7.5 g/dL (6.4-8.2); Sodium Level 138 mmol/L (136-145); T4 Free Direct 1.03 ng/dL (0.76-1.46); Thyroid Stim Hormone (TSH) 4.75 uIU/mL (0.358-3.74); Triglycerides 1152 mg/dL
[2021-08-21 11:05] LABS: GGTP 36 U/L (5-55)
== END | disposition home or self-care (01) ==
PROVIDERS: PCP Registered Nurse; Visit Provider Surgery
DX: R92.8 Other abnormal and inconclusive findings on diagnostic imaging of breast (principal)
CPT/HCPCS: 80053; 80061; 82306; 84439; 84443; 88305

== ENCOUNTER → 2021-08-23 | Outpatient (CLI) | payer OTHER, SELFPAY ==
[2021-08-23 10:43] LABS: Absolute Lymphocyte Count 2.08 X10^3/uL (0.83-4.51); Absolute Neutrophil Count 3.1 X10^3/uL (2.0-7.7); Basophil# 0.02 X10^3/uL; Basophil% 0.3 % (0-1); Eosinophil# 0.08 X10^3/uL; Eosinophils% 1.3 % (0-5); Hematocrit 41.7 % (37-47); Hemoglobin 13.6 g/dL (12.0-15.0); Lymphocyte # 2.08 X10^3/ul (0.83-4.51); Mean Corp Hgb Conc 32.6 g/dL (32-36); Mean Corpuscular Hgb 30.5 pg (27.0-32.0); Mean Corpuscular Volume 93.5 fL (81-99); Mean Platelet Vol. 12.7 fl (6.2-12.0); Monocyte# 0.59 X10^3/uL; Monocyte% 9.9 % (0-10); NRBC Flagged by Analyzer 0 % (0-5); Neutrophil # 3.14 X10^3/uL (2.7-7.7); Neutrophil % 52.8 % (47-70); POSITIVE COUNT YES; Platelet Count 80 K/mm3 (150-450); RBC Distribution Width CV 14.6 % (11.6-14.6); RBC Distribution Width SD 49.7 fl (35.1-43.9); Red Blood Count 4.46 M/mm3 (4.2-5.4)
== END | disposition home or self-care (01) ==
LOC: LABSPEC 07:13
PROVIDERS: PCP Registered Nurse; Referring Provider Family Medicine; Visit Provider Family Medicine
DX: K76.89 Other specified diseases of liver (principal)
CPT/HCPCS: 36415; 85025

== ENCOUNTER → 2021-08-27 | Outpatient (CLI) | payer OTHER, SELFPAY ==
--- NOTE | 2021-08-27 14:14 | BI_ITS ---
MAMMOGRAPHY - UNILATERAL DIAGNOSTIC: LEFT BREAST REASON FOR EXAM: Female, 60 years old. post biopsy clip check PERTINENT HISTORY: Non-contributory. TECHNIQUE: Digital examination. Mediolateral oblique (MLO) and craniocaudad (CC) views of the breast were obtained. CAD: CAD was not performed on this study. COMPARISON: 08/13/2021 FINDINGS: Breast Composition: The breasts are heterogeneously dense, which may obscure small masses. There are no dominant masses or suspicious calcifications. Interval biopsy of mass in the upper outer quadrant of the left breast at posterior depth with placement of a marking clip. BI/DIAG MAMM W/CAD, UNILAT IMPRESSION: Interval biopsy of mass in the upper-outer quadrant left breast with placement of a marking clip. Approximately 10% of breast cancers are not detected by mammography. A normal mammogram should not delay biopsy of a clinically suspicious abnormality. Electronically Signed: Donald Callahan MD at 14:54 EDT ,
== END | disposition home or self-care (01) ==
LOC: OPBI 14:13
PROVIDERS: PCP Registered Nurse; Visit Provider Surgery
DX: Z98.890 Other specified postprocedural states (principal)
CPT/HCPCS: 77065

== ENCOUNTER → 2021-08-28 | Outpatient (CLI) | payer OTHER, SELFPAY ==
--- NOTE | 2021-08-28 13:20 | MRI_ITS ---
STUDY: MRI ABDOMEN WITH AND WITHOUT CONTRAST REASON FOR EXAM: Female, 60 years old. Liver mass TECHNIQUE: Standardized fat and water weighted pulse sequences were obtained in all 3 orthogonal planes post contrast administration. with and without 15 CC DOTAREM contrast material was administered intravenously for the contrast portion of the examination. COMPARISON: MRI Sep [address] Aug 14 2021 3:07pm FINDINGS: The visualized lung bases are unremarkable. The visualized portions of the heart are within normal limits. 19 mm T2 hyperintensity in the right lobe of the liver. SE 904 IM 29. 21 mm T2 hyperintensity in the left lobe of the liver. SE 904 IM 29. 36 mm T2 hyperintensity in the right lobe of the liver medially. SE 904 IM 44. 13 mm T2 hyperintensity in the right lobe of the liver laterally. SE904 IM 51. There is a poorly visualized lesion in the left lobe of the liver measuring 8 mm. SE 904 IM 19. All of the liver lesions are of low T1 signal. All of the lesions demonstrate peripheral puddling on the initial contrast enhanced images. They all have centripetal fill. Spleen is 18.4cm in size. Normal pancreas. The liver is on the upper side of normal in size at 19.1 cm. There are surgical clips in the gallbladder fossa consistent with a prior cholecystectomy. There is moderate splenomegaly. Normal pancreas. Normal bilateral adrenal glands. Normal right kidney. Normal left kidney. Normal visualized stomach. Normal small intestine. Normal colon. The appendix is visualized and appears normal. Normal abdominal aorta. Normal inferior vena cava. Normal retroperitoneum. There is a small umbilical hernia containing fat. Normal osseous structures. MRI/MRI Abd WITH and W/O Contrast IMPRESSION: 5 total liver lesions. 4 of the lesions are stable in size and consistent for hemangiomas. The 5th and largest lesion in the medial right lobe of the liver has decreased in size. Spleen is enlarged. Electronically Signed: Mal Cronin MD at 22:10 EDT ,
== END | disposition home or self-care (01) ==
LOC: MRI 13:20
PROVIDERS: PCP Registered Nurse; Referring Provider Family Medicine; Visit Provider Family Medicine
DX: K76.89 Other specified diseases of liver (principal)
CPT/HCPCS: 74183; A9575; A4216

== ENCOUNTER → 2021-09-26 | Outpatient (CLI) | payer OTHER, SELFPAY ==
[2021-09-26 10:15] LABS: Erythrocyte Sedimentation Rate 12 mm/hr (0-30)
[2021-09-26 10:19] LABS: Absolute Lymphocyte Count 1.47 X10^3/uL (0.83-4.51); Absolute Neutrophil Count 3.3 X10^3/uL (2.0-7.7); Basophil# 0.01 X10^3/uL; Basophil% 0.2 % (0-1); Eosinophil# 0.08 X10^3/uL; Eosinophils% 1.5 % (0-5); Hematocrit 41.3 % (37-47); Hemoglobin 13.4 g/dL (12.0-15.0); International Normalized Ratio 1.1; Lymphocyte # 1.47 X10^3/ul (0.83-4.51); Lymphocyte % 27.6 % (19-41); Mean Corp Hgb Conc 32.4 g/dL (32-36); Mean Corpuscular Hgb 30.3 pg (27.0-32.0); Mean Corpuscular Volume 93.4 fL (81-99); Mean Platelet Vol. 13.5 fl (6.2-12.0); Monocyte% 7.5 % (0-10); NRBC Flagged by Analyzer 0 % (0-5); Neutrophil # 3.31 X10^3/uL (2.7-7.7); Neutrophil % 62.3 % (47-70); POSITIVE COUNT YES; Platelet Count 79 K/mm3 (150-450); Prothrombin Time (Protime)PT. 13.4 SECONDS (11.7-14.9); RBC Distribution Width CV 14.7 % (11.6-14.6); RBC Distribution Width SD 50.3 fl (35.1-43.9); Red Blood Count 4.42 M/mm3 (4.2-5.4); White Blood Count 5.3 K/mm3 (4.4-11.0)
[2021-09-26 10:38] LABS: Hemoglobin A1c 4.8 % (3.8-5.6)
[2021-09-26 10:38] LABS: Lipase 86 U/L (73-393)
[2021-09-26 10:56] LABS: HIV - WCH Non-Reactive (Nonreactive)
[2021-09-26 11:12] LABS: Cholesterol 241 mg/dL (200); High Density Lipoprotein 25 mg/dL; Triglycerides 961 mg/dL
[2021-09-26 11:14] LABS: AST(SGOT) 30 U/L (15-37); Alanine Aminotransfer ALT/SGPT 55 U/L (13-56); Albumin, Serum 3.8 g/dL (3.2-5.0); Alkaline Phosphatase 128 U/L (45-117); Anion Gap 8 (5-15); BUN 13 mg/dL (7-18); BUN/Creat Ratio 14.2 RATIO (10-20); CRP 5.64 mg/L (0.0-3.0); Calcium,Total 8.6 mg/dL (8.5-10.1); Chloride 105 mmol/L (98-107); Creatinine, Serum 0.92 mg/dL (0.55-1.02); EST Glomerular Filtration Rate 66 mL/min (>60); Est Glom Filt Rate - Afr Amer 80 mL/min (>60); Ferritin 356 ng/mL (8-252); GGTP 26 U/L (5-55); Globulin 3.8 g/dL (2.2-4.2); Glucose 118 mg/dL (74-106); LDH 218 U/L (84-246); Potassium 3.5 mmol/L (3.5-5.1); Protein, Total 7.6 g/dL (6.4-8.2); Sodium Level 138 mmol/L (136-145)
[2021-09-27 13:08] LABS: Anti-Centromere B Ab <0.2 AI (0.0-0.9); Anti-Chromatin <0.2 AI (0.0-0.9); Anti-Jo <0.2 AI (0.0-0.9); Anti-Scleroderma-70 AB <0.2 AI (0.0-0.9); RNP Ab 0.6 AI (0.0-0.9); SJOGREN'S Anti-SS-A test < 0.2 AI (0.0-0.9); SJOGREN'S Anti-SS-B test < 0.2 AI (0.0-0.9); Smith Ab <0.2 AI (0.0-0.9)
[2021-09-27 13:20] LABS: Anti-Mitochondrial AB <20.0 Units (0.0-20.0); Anti-dsDNA Ab <1 IU/mL (0-9)
[2021-09-28 04:07] LABS: Angiotensin Convert Enzyme 27 U/L (14-82); Ceruloplasmin 20.4 mg/dL (19.0-39.0); Endomysial Antibody IgA Negative (Negative); HEPATITIS B SURFACE AG Negative (Negative); Hep C Antibodies 0.4 s/co ratio (0.0-0.9); Hepatitis A IgM Antibody Negative (Negative); Hepatitis B Core AB IgM Negative (Negative); Immunoglobulin A 565 mg/dL (87-352)
[2021-09-28 08:41] LABS: AFP, Tumor Marker 1.6 ng/mL (0.0-9.2); Anti-Smooth Muscle ABS 7 Units (0-19); Copper, Serum or Plasma 96 ug/dL (80-158); Cytoplasmic Ab (C-ANCA) <1:20 titer (Neg:<1:20); Haptoglobin < 10 mg/dL (33-346); Perinuclear Ab (P-ANCA) <1:20 titer (Neg:<1:20); t-Transglutaminase IgA <2 U/mL (0-3)
[2021-10-01 11:25] LABS: Gastrin, Serum 17 pg/mL (0-115)
== END | disposition home or self-care (01) ==
LOC: MFPLAB 09:33
PROVIDERS: Family Medicine; PCP Internal Medicine Gastroenterology; Referring Provider Internal Medicine Gastroenterology; Visit Provider Nurse Practitioner Adult Health
DX: K76.0 Fatty (change of) liver, not elsewhere classified (principal)
CPT/HCPCS: 36415; 80053; 80061; 80074; 82105; 82164; 82390; 82525; 82728; 82784; 82941; 82977; 83010; 83036; 83516; 83615; 83690; 85025; 85610; 85652; 86140; 86225; 86235; 86255; 86256; 86703

== ENCOUNTER → 2021-10-02 | Outpatient (CLI) | payer OTHER, SELFPAY ==
--- NOTE | 2021-10-02 12:34 | NM_ITS ---
Gastric emptying study INDICATION: Nausea TECHNIQUE: After the administration 1.1 mCi technetium 99m sulfur colloid in a meal of oatmeal orally, multiple scintigraphic images of the abdomen were obtained. Furthermore, counts were obtained in the gastric abdomen curve was plotted. FINDINGS: Normal uptake is seen within the stomach with passage through the duodenum into the small bowel. After 1 hour, there is a 52% gastric retention which is normal. T1 half is 53 minutes which is normal. NM/Gastric Emptying Study IMPRESSION: Normal gastric emptying. Electronically Signed: Donald Callahan MD at 10:09 EDT ,
== END | disposition home or self-care (01) ==
LOC: NM 12:33
PROVIDERS: PCP Internal Medicine Gastroenterology; Visit Provider Nurse Practitioner Adult Health
DX: K31.89 Other diseases of stomach and duodenum (principal); R11.0 Nausea
CPT/HCPCS: 78264; A9541

== ENCOUNTER 2021-10-10 10:19 | Day surgery (SDC) | payer OTHER, SELFPAY ==
[2021-10-10 10:52] VITALS: BP 134/87; PULSE 98; RESP 16; TEMP 37.5; O2SAT 98; BMI 30.1
--- NOTE | 2021-10-10 10:53 | HP.PCM_ITS ---
History and Physical Date of Admission: 10/10/21 HIMA HERNANDEZ, is a 60 F who presents to the office today for liver lesions, right upper quadrant pain and nausea. Daughter Erica accompanies her. CT abdomen on 08/14/2021 for hepatic lesions showed a fatty liver and multiple hepatic lesions again identified which were previously evaluated with MRI in 2019, hepatic MRI was recommended.? Also shows focal wall thickening of the antrum of the stomach.? It shows enlarged spleen, she has ITP.? On 08/28/2021 she had MRI of the abdomen, it showed 5 total liver lesions, 4 are stable in size and consistent with hemangiomas, the fifth and largest lesion in the medial right lobe of the liver has decreased in size. She has RUQ pain and nausea. Used to get similar symptoms before cholecystectomy, but even more severe now.? Has difficulty saying when this began.? The pain is short-lived. Worse if she doesn't eat breakfast. Almost vomits. Sometimes better if she eats. Has some difficulty swallowing, intermittent. Had a swallowing study 12/2015, that was normal.? When she had covid she has severe dysphagia, that seemed to resolve. Has hiatal hernia. Occas heartburn, has had it recently, relieved with TUMS. Vitamin D is low. She will be starting rosuvastatin for very elevated triglycerides of over 1100. Takes probiotic, helps keep her bowels regular. Can have diarrhea after some foods. Pt's labs at Dr Puckett'kiko showed hx of hep C, probably from immunoglobulin inj or blood transfusion. She has ITP. Mother has autoimmune hepatitis and lupus and cirrhosis. Sister has celiac. Patient had cholecystectomy yrs ago Colonoscopy 1-[address] Gil for hx polyps, to repeat in 5 yrs EGD many years ago She is being evaluated for obstructive sleep apnea Comorbidities include hypothyroidism, ITP, factor V Leiden mutation, liver hemangiomas, colon polyps, splenomegaly, obesity Past surgical history includes , cholecystectomy, hysterectomy, lumpectomy ROS Const Constitutional: Positive for fatigue ENT ENT: Positive for difficulty swallowing Gastro GI: Positive for abdominal pain, bloating, constipation, difficulty swallowing, excessive flatus and nausea/dyspepsia; No belching, change in bowel habits, change in stool character, coffee ground emesis, cramping, diarrhea, heartburn, feeling full early, incontinent of stools, Vomiting blood/hematemesis, Blood in stool, loose stools, Black,tarry stools, pain with swallowing, vomiting or other Musc Musculoskeletal: Positive for joint pain, back pain and stiffness Skin Skin: No yellowing of the eye or itchy eyes Psych Psychiatric: No anxiety and No depression Endo Endocrine: Positive for fatigue Aller/Imm Allergy/Immunologic: No itchy eyes Tomer/Lymp Hematologic/Lymphatic: Positive for easy bruising; No easy bleeding Exam Const General: cooperative, comfortable, well developed and well groomed Nutritional Appearance: obese Eyes General: appearance normal, both eyes and all related structures Resp Effort & Inspection: normal respiratory effort GI Inspection: obesity Palpation: soft, no masses and tender in the RUQ Skin General: no rashes or lesions noted Quality Reporting Tobacco Screening ([facility] 138) Smoking Status: Never smoker Assessment and Plan Assessment and Plan (1) Fatty liver: ?Status:?Acute ?Plan: 60-year-old female with fatty liver, benign liver hemangiomas, very elevated triglycerides, obesity, family history of autoimmune hepatitis, possible history hepatitis C, right upper quadrant pain, nausea and right upper quadrant tenderness on exam.? On review of her CT images she has retained food in the stomach.? Long discussion with patient and her daughter who is a hospital employee in phlebotomy.? Work-up to begin with biochemical evaluation along with liver ultrasound and liver elastography.? She will start the rosuvastatin pres cribed by primary care, and she will likely also need to set up a 4 her hypertriglyceridemia.? Encouraged her to proceed with work-up for obstructive sleep apnea and treatment.? We will get gastric emptying study.? She declines treatment specifically for nausea, preferring to wait and see what we find along the way and treat accordingly.? She will be scheduled for EGD to evaluate dysphagia, heartburn, nausea, epigastric pain, abnormal gastric folds seen on CT, retained food seen on CT.? Follow-up appointment is scheduled for first available.? I will be in touch with the results as they are available. (2) Epigastric pain: ?Status:?Acute ?Plan: EGD (3) Abnormal gastric folds: ?Status:?Acute ?Plan: Check gastrin level (4) Retained food in stomach: ?Status:?Acute ?Plan: Check gastric emptying study (5) Nausea: ?Status:?Acute ?Plan: Check gastric emptying study (6) RUQ pain: ?Status:?Acute ? ? ? Orders: Orders HIV - [facility] 09/23/21 K76.0 - Fatty (change of) liver , not elsewhere classified ? Comprehensive Metabolic Profil 09/23/21 K76.0 - Fatty (change of) liver , not elsewhere classified ? CRP 09/23/21 K76.0 - Fatty (change of) liver , not elsewhere classified ? Ferritin 09/23/21 K76.0 - Fatty (change of) liver , not elsewhere classified ? LDH 09/23/21 K76.0 - Fatty (change of) liver , not elsewhere classified ? Hemoglobin A1c 09/23/21 K76.0 - Fatty (change of) liver , not elsewhere classified ? Prothrombin Time w/INR 09/23/21 K76.0 - Fatty (change of) liver , not elsewhere classified ? CBC W/Diff, Automated 09/23/21 K76.0 - Fatty (change of) liver , not elsewhere classified ? Erythrocyte Sed Rate 09/23/21 K76.0 - Fatty (change of) liver , not elsewhere classified ? Anti-Mitochondrial AB 09/23/21 K76.0 - Fatty (change of) liver , not elsewhere classified ? [place] Comprehensive Panel 09/23/21 K76.0 - Fatty (change of) liver , not elsewhere classified ? Hepatitis Panel Acute 09/23/21 K76.0 - Fatty (change of) liver , not elsewhere classified ? Angiotensin Convert Enzyme 09/23/21 K76.0 - Fatty (change of) liver , not elsewhere classified ? AFP, Tumor Marker 09/23/21 K76.0 - Fatty (change of) liver , not elsewhere classified ? ANCA 09/23/21 K76.0 - Fatty (change of) liver , not elsewhere classified ? Anti-Smooth Muscle ABS 09/23/21 K76.0 - Fatty (change of) liver , not elsewhere classified ? Ceruloplasmin 09/23/21 K76.0 - Fatty (change of) liver , not elsewhere classified ? Copper, Serum or Plasma 09/23/21 K76.0 - Fatty (change of) liver , not elsewhere classified ? Haptoglobin 09/23/21 K76.0 - Fatty (change of) liver , not elsewhere classified ? Ammonia 09/23/21 K76.0 - Fatty (change of) liver , not elsewhere classified ? Abdomen Limited 09/23/21 K76.0 - Fatty (change of) liver , not elsewhere classified ? Elastography Parenchyma/Organ 09/23/21 K76.0 - Fatty (change of) liver , not elsewhere classified ? Celiac Disease Profile 09/23/21 K76.0 - Fatty (change of) liver , not elsewhere classified ? GGTP 09/23/21 K76.0 - Fatty (change of) liver , not elsewhere classified ? 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 Gastric Emptying Study 09/23/21 K31.89 - Other diseases of stom ach and duodenum, R11.0 - Nausea ? Lipase 09/23/21 K76.0 - Fatty (change of) liver , not elsewhere classified, R10.13 - Epigastric pain ? I have re-examined the patient. There are no clinical changes since date of exam.
[2021-10-10] MEDS: Lactated Ringers 1,000 ML 15 ML IV (10:59)
--- NOTE | 2021-10-10 11:15 | EGD_PTH ---
PATIENT: VALDEZ HERNANDEZ LOC: EN U#:[id number] AGE/SX: 61/F ROOM: RE10/10/[address]: Dr. Jose Ruiz DO : 1960 BED: DIS: 10/10/2021 SPEC #: [id number] RECD: 10/10/21 14:57 STATUS: PARRISH RERatna #: [id number] NORMA: 10/10/21 11:[address]: Jose Ruiz DEPT: SURGICAL PATHOLOGY RECD BY: Celina Fragoso ENTERED: 10/11/21 08:39 SP TYPE: EGD BIOPSY OT DR: Sunni Primary Care Phys Tissues: A - Duodenum, NOS B - Gastric mucous membrane C - Esophagus, NOS Procedures: Special Stain Group II Surgery Specimen Level IV Alcian Blue/PAS (control) HEADER OPERATION: EGD ([facility] [place]) with biopsies PRE-OP DIAGNOSIS: Fatty liver, epigastric pain, abnormal gastric folds, retained food in stomach TISSUE SUBMITTED: A ? Duodenum biopsy, B ? Gastric polyp biopsy, C ? Distal esophagus biopsy MICROSCOPIC DIAGNOSIS A. Duodenum, biopsy: No pathologic change. B. Gastric polyp, biopsy: Consistent with fragments of fundic gland polyp. See comment. C. Distal esophagus, biopsy: Gastroesophageal junctional mucosa with chronic inflammation. 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 See comment. AM:johnny 10/14/2021 COMMENT B. The results of immunohistochemistry for Helicobacter pylori will be reported separately ([id number]). C. Immunohistochemistry ([id number]) for P53 and Ki-67 will be performed and results will be reported separately. Alcian blue/PAS stain with matched control supports the above diagnosis. MICROSCOPIC DESCRIPTION Slides are reviewed. GROSS DESCRIPTION A - Received in fixative is one container labeled with the patient's name and designated duodenum biopsy. The specimen consists of multiple irregular fragments of light ramos soft tissue that in aggregate measure 1 x 0.3 x 0.1 cm. The specimen is totally submitted in one cassette. B - Received in fixative is one container labeled with the patient's name and designated gastric polyp biopsy. The specimen consists of two irregular fragments of light ramos soft tissue that in aggregate measure 0.6 x 0.3 x 0.1 cm. The specimen is totally submitted in one cassette. C - Received in fixative is one container labeled with the patient's name and designated distal esophagus biopsy. The specimen consists of multiple irregular fragments of light ramos soft tissue that in aggregate measure 0.8 x 0.5 x 0.1 cm. The specimen is totally submitted in one cassette. / AUTUMN:johnny 10/11/2021 TC:3 CPT: 01274 x3, 55579
--- NOTE | 2021-10-10 11:15 | IMM_PTH ---
PATIENT: VALDEZ HERNANDEZ LOC: EN U#:[id number] AGE/SX: 61/F ROOM: RE10/10/[address]: Dr. Jose Ruiz DO : 1960 BED: DIS: 10/10/2021 SPEC #: [id number] RECD: 10/11/21 13:04 STATUS: PARRISH RERatna #: [id number] NORMA: 10/10/21 11:[address]: Jose Ruiz DEPT: IMMUNOHISTOCHEMISTRY RECD BY: Holli Castaneda ENTERED: 10/11/21 13:05 SP TYPE: IMMUNO OTHR DR: No Primary Care Phys Tissues: B - Stomach, NOS C - Esophagus, NOS Procedures: H Pylori (initial) P53 (initial) KI-67 (add) PHYSICIAN & INSTITUTION [facility] [phone] SPECIMEN INFORMATION: Tissue Source: B ? Gastric polyp biopsy, C ? Distal esophagus biopsy Clinical Info: Fatty liver, epigastric pain, abnormal gastric folds, retained food in stomach Specimen Number: [id number] B & C CPT code: 10080 x2, 54655 METHODOLOGY: Deparaffinized sections of prefer/formalin-fixed tissue or PAP/DQ stained slides are incubated with monoclonal/polyclonal antibodies/oligonucleotide probes. Localization is made via biotin free immunoperoxidase method. Appropriate controls are performed and reacted as expected. Results on target cell population are indicated in the following table: RESULTS: ANTIBODY / CLONE RESULT Block B H Pylori (polyclonal) negative Block C P53 (DO-7) negative Ki-67 (30-9) positive, low These tests were developed and their performance characteristics determined by [facility]. They may not have been cleared or approved by the U.S. Food and Drug Administration. The FDA has determined that such clearance or approval is not necessary. The above immunohistochemical/dualISH markers are ordered and reviewed by the Pathologist. INTERPRETATION: B. Gastric polyp, biopsy: Negative for Helicobacter pylori organisms. C. Distal esophagus, biopsy: No evidence of dysplasia. AM:johnny 10/15/2021
[2021-10-10 11:26] VITALS: BP 110/76; BP 134/87; PULSE 84; RESP 16; TEMP 36.5; O2SAT 99
--- NOTE | 2021-10-10 11:28 | OP.EGD_ITS ---
Patient Name: Armida Montero Procedure Date: 10/10/2021 10:48 AM Date of : 1960 Age: 61 Procedure: Upper GI endoscopy Indications: Epigastric abdominal pain, Dysphagia, Heartburn Providers: Jose Ruiz DO Referring MD: Jose Ruiz DO Medicines: Monitored Anesthesia Care Patient Profile: This is a 61 year old female. Refer to note in patient chart for documentation of history and physical. Patient has symptoms of chronic abdominal cramping, chronic epigastric abdominal pain and chronic heartburn. Complications: No immediate complications. Procedure: Pre-Anesthesia Assessment: - Prior to the procedure, a History and Physical was performed, and patient medications and allergies were reviewed. The patient is competent. The risks and benefits of the procedure and the sedation options and risks were discussed with the patient. All questions were answered and informed consent was obtained. Patient identification and proposed procedure were verified by the physician in the pre-procedure area. Mental Status Examination: alert and oriented. Airway Examination: normal oropharyngeal airway and neck mobility. Respiratory Examination: clear to auscultation. CV Examination: normal. Prophylactic Antibiotics: The patient does not require prophylactic antibiotics. Prior Anticoagulants: The patient has taken no previous anticoagulant or antiplatelet agents. After reviewing the risks and benefits, the patient was deemed in satisfactory condition to undergo the procedure. The anesthesia plan was to use moderate sedation / analgesia (conscious sedation). Immediately prior to administration of medications, the patient was re-assessed for adequacy to receive sedatives. The heart rate, respiratory rate, oxygen saturations, blood pressure, adequacy of pulmonary ventilation, and response to care were monitored throughout the procedure. The physical status of the patient was re-assessed after the procedure. After obtaining informed consent, the endoscope was passed under direct vision. Throughout the procedure, the patient's blood pressure, pulse, and oxygen saturations were monitored continuously. The Endoscope was introduced through the mouth, and advanced to the second part of duodenum. The upper GI endoscopy was accomplished without difficulty. The patient tolerated the procedure well. Scope In: 11:09:35 AM Scope Out: 11:19:52 AM Total Procedure Duration Time 0 hours 10 minutes 17 seconds Findings: A moderate Schatzki ring was found in the lower third of the esophagus. A guidewire was placed and the scope was withdrawn. Dilation was performed with a Savary dilator with no resistance at 36 Fr. The dilation site was examined following endoscope reinsertion and showed moderate improvement in luminal narrowing. Estimated blood loss: none. LA Grade A (one or more mucosal breaks less than 5 mm, not extending between tops of 2 mucosal folds) esophagitis with no bleeding was found 37 to 38 cm from the incisors. Biopsies were taken with a cold forceps for histology. Verification of patient identification for the specimen was done. Estimated blood loss was minimal. A small hiatal hernia was present. Scattered moderate inflammation characterized by congestion (edema) was found in the gastric body. A few 5 mm sessile polyps with no stigmata of recent bleeding were found on the greater curvature of the stomach. The polyp was removed with a cold snare. Polyp resection was incomplete. The resected tissue was retrieved. Estimated blood loss: none. The second portion of the duodenum was normal. Patchy moderately erythematous mucosa without active bleeding and with no stigmata of bleeding was found in the first portion of the duodenum. Biopsies were taken with a cold forceps for histology. Verification of patient identification for the specimen was done. Estimated blood loss was minimal. Impression: - Moderate Schatzki ring. Dilated. - LA Grade A reflux esophagitis. Biopsied. - Small hiatal hernia. - Gastritis. - A few gastric polyps. Incomplete resection. Resected tissue retrieved. - Normal first portion of the duodenum. Recommendation: - Discharge patient to home. - Resume previous diet. - Continue present medications. - Await pathology results. - Repeat upper endoscopy in 1 year for surveillance based on pathology results. - Return to GI office. Procedure Code(s): --- Professional --- 54315, Esophagogastroduodenoscopy, flexible, transoral; with removal of tumor(s), polyp(s), or other lesion(s) by snare technique 23627, Esophagogastroduodenoscopy, flexible, transoral; with insertion of guide wire followed by passage of dilator(s) through esophagus over guide wire 87963, 59,51, Esophagogastroduodenoscopy, flexible, transoral; with biopsy, single or multiple CPT copyright 2017 [employer]. All rights reserved. The codes documented in this report are preliminary and upon record label intern review may be revised to meet current compliance requirements. Jose Ruiz DO 10/10/2021 11:28:10 AM This report has been signed electronically. Number of Addenda: 1 Note Initiated On: 10/10/2021 10:48 AM Addendum Number: 1 Addendum Date: 01/08/2022 6:27:12 AM MAC was used as sedation for this procedure. Jose Ruiz DO 01/08/2022 6:27:16 AM This report has been signed electronically.
[2021-10-10 11:30] VITALS: BP 103/74; BP 134/87; PULSE 75; RESP 16; O2SAT 97
[2021-10-10 11:35] VITALS: BP 107/74; BP 134/87; PULSE 79; RESP 16; O2SAT 95
[2021-10-10 11:41] VITALS: BP 116/70; BP 134/87; PULSE 73; RESP 16; TEMP 36.7; O2SAT 99
[2021-10-10 12:00] VITALS: BP 134/87
== END 2021-10-10 12:22 | disposition home or self-care (01) ==
LOC: EN 10:21 → AC 10:22
PROVIDERS: Referring Provider Internal Medicine Gastroenterology; Visit Provider Internal Medicine Gastroenterology
PROC: 0DJ08ZZ Inspection of Upper Intestinal Tract, Via Natural or Artificial Opening Endoscopic (ICD-10-PCS; CPT 43235; principal; 2021-10-10 11:10)
DX: K44.9 Diaphragmatic hernia without obstruction or gangrene (principal); D69.3 Immune thrombocytopenic purpura; D68.51 Activated protein C resistance; E66.9 Obesity, unspecified; K76.0 Fatty (change of) liver, not elsewhere classified; K29.70 Gastritis, unspecified, without bleeding; K31.7 Polyp of stomach and duodenum; K21.00 Gastro-esophageal reflux disease with esophagitis, without bleeding; D18.03 Hemangioma of intra-abdominal structures; Z90.49 Acquired absence of other specified parts of digestive tract; E03.9 Hypothyroidism, unspecified; Z86.16 Personal history of COVID-19
CPT/HCPCS: 43248; 43251; 43239; 88305; 88313; 88341; 88342; J7120; J2405

== ENCOUNTER → 2021-10-14 | Outpatient (CLI) | payer OTHER, SELFPAY | END | disposition home or self-care (01) | PROVIDERS: PCP Family Medicine; Referring Provider Internal Medicine Critical Care Medicine; Visit Provider Internal Medicine Critical Care Medicine | DX: G47.10 Hypersomnia, unspecified (principal) | CPT/HCPCS: 95806 ==

== ENCOUNTER → 2021-10-15 | Outpatient (CLI) | payer OTHER, SELFPAY ==
--- NOTE | 2021-10-15 10:26 | US_ITS ---
STUDY: ABDOMINAL ULTRASOUND - ELASTOGRAPHY REASON FOR VISIT: Female, 61 years old. Fatty infiltration of the liver. TECHNIQUE: Liver stiffness measurements were obtained on a [employer] RS 85 ultrasound machine using a CA 1-7 probe following the SRU guidelines. 3 measurements were obtained using a 2-D-SWE method. The IQR/M was 16% suggesting a quality data set. TECHNICAL QUALITY: Adequate. COMPARISON: Comparison is made with prior sonogram done earlier today. FINDINGS: Liver: Diffuse fatty infiltration of the liver. Liver masses. Median liver stiffness measured 6.1 kPa. US/Elastography Parenchyma/Organ IMPRESSION: Liver stiffness measures 6.1 kPa compatible with F2-F3 (Mild to moderate liver fibrosis) Metavir score. Electronically Signed: Des Trejo MD at 14:49 EDT ,
--- NOTE | 2021-10-15 10:26 | US_ITS ---
STUDY: ABDOMINAL ULTRASOUND - RIGHT UPPER QUADRANT REASON FOR VISIT: Female, 61 years old . Fatty infiltration of the liver. TECHNIQUE: Ultrasound evaluation of the right upper quadrant was performed with real-time and static murray-scale imaging. TECHNICAL QUALITY: Adequate. COMPARISON: Comparison is made with prior study dated 11/22/2018. Comparison is also made with prior MRI of the abdomen dated 08/28/2021. FINDINGS: Liver: The liver measures 15.5 cm. There is increased echogenicity consistent with fatty infiltration. The bile ducts are within normal limits. There is hepatic color flow. The direction of portal flow is hepatopetal. There is a 2.2 cm x 2.1 cm x 1.7 cm hypoechoic nodule in the left lobe of the liver. There is also evidence of a 1.8 cm x 1.7 cm x 1.7 cm hypoechoic solid nodule in the dome of the right lobe of the liver as well as a 3.6 cm x 3.2 cm x 3.6 cm hypoechoic solid nodule in the posterior aspect of the liver adjacent to the right hemidiaphragm. Gallbladder: The patient is status post cholecystectomy. Common Bile Duct (C.B.D.): The common bile duct measures 6.4 mm. Pancreas: Normal size of the head, body and tail of the pancreas. There is normal echogenicity of the pancreas. There is no demonstrated pancreatic mass or cyst. Right Kidney: Normal size of the right kidney. The right kidney measures 10.8 cm x 4.87 x 5.2 cm. Normal renal cortex. The right cortex measures 1.7 cm. There is no demonstrated renal mass or cyst. There is no right hydronephrosis. US/Abdomen Limited IMPRESSION: Stable appearance of the nodular densities in both lobes of the liver. Electronically Signed: Des Trejo MD at 14:48 EDT ,
== END | disposition home or self-care (01) ==
LOC: US 10:24
PROVIDERS: PCP Family Medicine; Visit Provider Nurse Practitioner Adult Health
DX: K76.0 Fatty (change of) liver, not elsewhere classified (principal)
CPT/HCPCS: 76705; 76981

== ENCOUNTER → 2021-11-29 | Outpatient (CLI) | payer OTHER, SELFPAY ==
[2021-11-29 15:29] LABS: Thyroid Stim Hormone (TSH) 1.32 uIU/mL (0.358-3.74); Triglycerides 275 mg/dL
== END | disposition home or self-care (01) ==
LOC: MTLAB 11:51
PROVIDERS: PCP Family Medicine; Referring Provider Family Medicine; Visit Provider Family Medicine
DX: E78.1 Pure hyperglyceridemia (principal); K76.0 Fatty (change of) liver, not elsewhere classified; E03.9 Hypothyroidism, unspecified
CPT/HCPCS: 36415; 82140; 84443; 84478

== ENCOUNTER → 2022-01-09 | Outpatient (CLI) | payer OTHER, SELFPAY | END | disposition home or self-care (01) | LOC: SL 10:53 | PROVIDERS: PCP Family Medicine; Visit Provider Internal Medicine Critical Care Medicine | DX: Z46.89 Encounter for fitting and adjustment of other specified devices (principal) ==

== ENCOUNTER → 2022-03-20 | Outpatient (CLI) | payer OTHER, SELFPAY ==
--- NOTE | 2022-03-20 09:38 | US_ITS ---
STUDY: ABDOMINAL ULTRASOUND - ELASTOGRAPHY REASON FOR VISIT: Female, 61 years old. Fatty infiltration of the liver. TECHNIQUE: Liver stiffness measurements were obtained on a [employer] RS 85 ultrasound machine using a CA 1-7 probe following the SRU guidelines. 3 measurements were obtained using a 2-D-SWE method. TheIQR/M was 12% suggesting a quality data set. TECHNICAL QUALITY: Adequate. COMPARISON: Comparison is made with prior study dated 10/15/2021. FINDINGS: Liver: Hepatomegaly and fatty infiltration of the liver. Median liver stiffness measured 5.4 kPa. US/Elastography Parenchyma/Organ IMPRESSION: Liver stiffness measures 5.4 kPa compatible with F0-F1 (Normal to mild liver fibrosis) Metavir score. Electronically Signed: Des Trejo MD at 15:20 EST ,
--- NOTE | 2022-03-20 09:38 | US_ITS ---
STUDY: ABDOMINAL ULTRASOUND - RIGHT UPPER QUADRANT REASON FOR VISIT: Female, 61 years old elastography, FATTY LIVER TECHNIQUE: Ultrasound evaluation of the right upper quadrant was performed with real-time and static murray-scale imaging. TECHNICAL QUALITY: Adequate. COMPARISON: Comparison is made with prior study dated 10/15/2021. FINDINGS: Liver: The liver is enlarged and measures 18.9 cm. There is increased echogenicity consistent with fatty infiltration. The bile ducts are within normal limits. There is hepatic color flow. The direction of portal flow is hepatopetal. In the left lobe liver, there is a 1.8 cm x 2.2 cm x 1.4 cm focal area of decreased attenuation. This may represent an area of focal fatty sparing. Gallbladder: The patient is status post cholecystectomy. Common Bile Duct (C.B.D.): The common bile duct measures 7 mm. Pancreas: Normal size of the head, body and tail of the pancreas. There is normal echogenicity of the pancreas. There is no demonstrated pancreatic mass or cyst. Right Kidney: Normal size of the right kidney. The right kidney measures 11.1 cm x 5.9 cm x 4.5 cm. Normal renal cortex. The right cortex measures 1.5 cm. There is no demonstrated renal mass or cyst. There is no right hydronephrosis. US/Abdomen Limited IMPRESSION: Hepatomegaly and fatty infiltration of the liver. Persistent focal area of decreased attenuation in the left lobe of the liver Electronically Signed: Des Trejo MD at 15:18 EST ,
== END | disposition home or self-care (01) ==
LOC: US 09:37
PROVIDERS: PCP Family Medicine; Visit Provider Nurse Practitioner Adult Health
DX: K76.0 Fatty (change of) liver, not elsewhere classified (principal); R16.0 Hepatomegaly, not elsewhere classified
CPT/HCPCS: 76705; 76981

== ENCOUNTER 2022-10-02 06:06 | Day surgery (SDC) | payer OTHER, SELFPAY ==
[2022-10-02] VITALS (7 sets, daily range): BP systolic 101–130; BP diastolic 65–73; PULSE 77–87; RESP 18–97; TEMP 37–37.3; O2SAT 14–97; BMI 29.8
[2022-10-02] MEDS: Lactated Ringers 1,000 ML 15 ML IV (06:38)
--- NOTE | 2022-10-02 07:00 | EGD_PTH ---
PATIENT: VALDEZ HERNANDEZ LOC: EN U#:[id number] AGE/SX: 62/F ROOM: RE10/02/[address]: Dr. Jose Ruiz DO : 1960 BED: DIS: 10/02/2022 SPEC #: [id number] RECD: 10/02/22 12:09 STATUS: PARRISH RERatna #: [id number] NORMA: 10/02/22 07:[address]: Jose Ruiz DEPT: SURGICAL PATHOLOGY RECD BY: Celina Fragoso ENTERED: 10/02/22 12:38 SP TYPE: EGD BIOPSY OT DR: Celine Caldwell DO Tissues: Esophagus, NOS Procedures: Special Stain Group II Surgery Specimen Level IV Alcian Blue/PAS (control) HEADER OPERATION: EGD ([facility] [place]), biopsy PRE-OP DIAGNOSIS: Nonalcoholic fatty liver disease, Burch's esophagus TISSUE SUBMITTED: Distal esophagus biopsy MICROSCOPIC DIAGNOSIS Distal esophagus, biopsy: Fragments of gastroesophageal mucosa with moderate chronic inflammation and changes consistent with gastroesophageal reflux disease. Intestinal metaplasia (goblet cell metaplasia) not identified. See comment. AUTUMN:johnny 10/03/2022 COMMENT Alcian blue/PAS stain with matched control is used in the evaluation of the specimen. MICROSCOPIC DESCRIPTION Slides are reviewed. GROSS DESCRIPTION Received in fixative is one container labeled with the patient's name and designated distal esophagus biopsy. The specimen consists of multiple irregular fragments of light ramos soft tissue that in aggregate measure 1.0 x 0.5 x 0.1 cm. The specimen is totally submitted in one cassette. / AUTUMN:johnny 10/02/2022 TC:3 CPT: 29903, 72859
--- NOTE | 2022-10-02 07:01 | HP.PCM_ITS ---
History and Physical Date of Admission: 10/02/22 61 F who presents to the office today for 3-month follow-up Burch's esophagus, NAFLD. She is feeling well in general, no GI complaints today. Burch's -- she takes pantoprazole 40 mg daily but would prefer not to. Would like to have ablation for Burch's. No dysphagia. Due to bile acid reflux. NAFLD -- primarily secondary to her severe hypertriglyceridemia. Her last triglyceride level was down to 275 from 1152. She only took for Vascepa for 4 days. She is taking plant-based omega vitamins now; that's the only consistent change she made. She made some dietary changes but that never helped in the past. Hasn't lost weight. She is taking ursodiol 250 mg BID. Did not realize vitamin e- was recommended. Armida established with this clinic 09.24.21 with a gastroenterology PMH of hemangioma of liver, rectal polyp, splenomegaly, thrombocytopenia and hiatal hernia repair. Symptoms included RUQ pain and nausea; intermittent dysphagia. CT abd with IV contrast 08.14.21 finding splenomegaly (ITP); focal wall thickening of stomach antrum, possible gastritis; abdominal calcification. MRI abd 08.28.21 finding 5 liver lesions, four of which are stable and the 5th ?and largest in medial right lobe has decreased; splenomegaly. Gastric emptying study 10.02.21 with T1/2 53 minutes and 52% retention at one hour. Normal. EGD 10.10.21 finding moderate Schatzki ring, Savary dilator to 36F; LA Grade A reflux esophagitis, Burch?s esophagus Ki-67 positive; small hiatal hernia; gastritis; gastric fundic gland polyps with incomplete resection. H.Pylori negative. US RUQ and elastography 10.15.21 with liver measurement 15.5cm with fatty infiltration and stable nodular densities. Stiffness measures 6.1kPa F2/3. Pt's labs at Dr Puckett'kiko showed hx of hep C, probably from immunoglobulin inj or blood transfusion. She has ITP. 09/2021 AFP normal. ROS Const Constitutional: Positive for fatigue ENT ENT: No difficulty swallowing Gastro GI: Positive for nausea/dyspepsia; No abdominal pain, belching, bloating, change in bowel habits, change in stool character, coffee ground emesis, constipation, cramping, diarrhea, heartburn, difficulty swallowing, feeling full early, excessive flatus, incontinent of stools, Vomiting blood/hematemesis, Blood in stool, loose stools, Black,tarry stools, pain with swallowing, vomiting or other Musc Musculoskeletal: Positive for joint pain, back pain, muscle cramps and stiffness Skin Skin: No yellowing of the eye or itchy eyes Psych Psychiatric: Positive for anxiety and No depression Endo Endocrine: Positive for fatigue Aller/Imm Allergy/Immunologic: No itchy eyes Tomer/Lymp Hematologic/Lymphatic: Positive for easy bruising; No easy bleeding Exam Const General: cooperative and comfortable Nutritional Appearance: obese Orientation: alert, awake and oriented x3 Quality Reporting Tobacco Screening ([facility] 138) Smoking Status: Never smoker Assessment and Plan Assessment and Plan (1) NAFLD (nonalcoholic fatty liver disease): Status: Acute Plan: Add vitamin E 800 IU daily (less if some in MVI) Continue ursodiol bid Update elastography in 2 mos (2) Burch's esophagus: Status: Acute Plan: Interested in ablation here by Dr Sara if that's a possibility, will put her on list Continue pantoprazole, try 20 mg QAM instead of 40 mg per pt preference Discussed possibility of cholestyramine for the excess bile f/u few mos Orders: Orders Abdomen Limited 02/03/22 K76.0 - Fatty (change of) liver, not elsewhere classified Elastography Parenchyma/Organ 02/03/22 K76.0 - Fatty (change of) liver, not elsewhere classified Comprehensive Metabolic Profil 02/03/22 K76.0 - Fatty (change of) liver, not elsewhere classified CRP 02/03/22 K76.0 - Fatty (change of) liver, not elsewhere classified Triglycerides 02/03/22 K76.0 - Fatty (change of) liver, not elsewhere classified Prothrombin Time w/INR 02/03/22 K76.0 - Fatty (change of) liver, not elsewhere classified CBC W/Diff, Automated 02/03/22 K76.0 - Fatty (change of) liver, not elsewhere classified Erythrocyte Sed Rate 02/03/22 K76.0 - Fatty (change of) liver, not elsewhere classified Ferritin 02/03/22 K76.0 - Fatty (change of) liver, not elsewhere classified Medications: New pantoprazole dosage change 20 mg PO DAILY 90 tabs 3RF Discontinued pantoprazole take twice a day for two months then once a day in the morning Discontinued Reason: Order Completed 40 mg PO BID 120 tabs 2RF I have examined the patient and the H&P has been reviewed. There are no clinical changes since date of exam.
--- NOTE | 2022-10-02 07:21 | OP.EGD_ITS ---
Patient Name: Armida Montero Procedure Date: 10/02/2022 7:00 AM Date of : 1960 Age: 62 Procedure: Upper GI endoscopy Indications: Heartburn, Follow-up of Burch's esophagus Providers: Jose Ruiz DO Referring MD: Jose Ruiz DO Medicines: Monitored Anesthesia Care Patient Profile: This is a 62 year old female. Refer to note in patient chart for documentation of history and physical. Patient has symptoms of chronic heartburn. She is status post EGD for Burch's biopsy one year ago. Complications: No immediate complications. Procedure: Pre-Anesthesia Assessment: - Prior to the procedure, a History and Physical was performed, and patient medications and allergies were reviewed. The patient is competent. The risks and benefits of the procedure and the sedation options and risks were discussed with the patient. All questions were answered and informed consent was obtained. Patient identification and proposed procedure were verified by the physician. Mental Status Examination: alert and oriented. Airway Examination: normal oropharyngeal airway and neck mobility. Respiratory Examination: clear to auscultation. CV Examination: normal. Prophylactic Antibiotics: The patient does not require prophylactic antibiotics. Prior Anticoagulants: The patient has taken no previous anticoagulant or antiplatelet agents. ASA Grade Assessment: II - A patient with mild systemic disease. After reviewing the risks and benefits, the patient was deemed in satisfactory condition to undergo the procedure. The anesthesia plan was to use monitored anesthesia care (MAC). Immediately prior to administration of medications, the patient was re-assessed for adequacy to receive sedatives. The heart rate, respiratory rate, oxygen saturations, blood pressure, adequacy of pulmonary ventilation, and response to care were monitored throughout the procedure. The physical status of the patient was re-assessed after the procedure. After obtaining informed consent, the endoscope was passed under direct vision. Throughout the procedure, the patient's blood pressure, pulse, and oxygen saturations were monitored continuously. The Endoscope was introduced through the mouth, and advanced to the third part of duodenum. The upper GI endoscopy was accomplished without difficulty. The patient tolerated the procedure well. 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 The maximum longitudinal extent of these mucosal changes was 1 cm in length. Mucosa was biopsied with a cold forceps for histology in a targeted manner at intervals of 1 cm in the lower third of the esophagus. One specimen bottle was sent to pathology. Verification of patient identification for the specimen was done. Estimated blood loss was minimal. A medium amount of food (residue) was found in the gastric body. No gross lesions were noted in the second portion of the duodenum. 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 Biopsied. - A medium amount of food (residue) in the stomach. - No gross lesions in the second portion of the duodenum. Recommendation: - Discharge patient to home. - Resume previous diet. - Continue present medications. - Await pathology results. Procedure Code(s): --- Professional --- 22138, Esophagogastroduodenoscopy, flexible, transoral; with biopsy, single or multiple CPT copyright 2017 [employer]. All rights reserved. The codes documented in this report are preliminary and upon coder operator review may be revised to meet current compliance requirements. Jose Ruiz DO 10/02/2022 7:20:45 AM This report has been signed electronically. Number of Addenda: 0 Note Initiated On: 10/02/2022 7:00 AM
--- NOTE | 2022-10-02 07:21 | OP.CCLET_ITS ---
10/02/2022 Celine Caldwell Do Re : Upper GI endoscopy procedure for Armida Montero Dear Javi This procedure was performed on September. 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 Biopsied. - A medium amount of food (residue) in the stomach. - No gross lesions in the second portion of the duodenum. Recommendations : - Discharge patient to home. - Resume previous diet. - Continue present medications. - Await pathology results. My findings are described in the full procedure note, which is enclosed. If I can be of further assistance, please feel free to contact me at . Sincerely, Jose Ruiz, 10/02/2022 7:20:45 AM This report has been signed electronically.
== END 2022-10-02 08:12 | disposition home or self-care (01) ==
LOC: EN 06:06 → AC 06:07
PROVIDERS: PCP Family Medicine; Referring Provider Family Medicine; Visit Provider Internal Medicine Gastroenterology
PROC: 0DJ08ZZ Inspection of Upper Intestinal Tract, Via Natural or Artificial Opening Endoscopic (ICD-10-PCS; CPT 43235; principal; 2022-10-02 06:55)
DX: K22.70 Barrett's esophagus without dysplasia (principal); R12 Heartburn; K76.0 Fatty (change of) liver, not elsewhere classified
CPT/HCPCS: 43239; 88305; 88313; J7120; J2405

== ENCOUNTER → 2023-01-05 | Outpatient (CLI) | payer OTHER, SELFPAY ==
[2023-01-05 17:40] LABS: Absolute Lymphocyte Count 1.71 X10^3/uL (0.83-4.51); Absolute Neutrophil Count 3.3 X10^3/uL (2.0-7.7); Basophil# 0.02 X10^3/uL; Basophil% 0.4 % (0-1); Eosinophil# 0.08 X10^3/uL; Eosinophils% 1.4 % (0-5); Hematocrit 41.4 % (37-47); Hemoglobin 13.4 g/dL (12.0-15.0); Lymphocyte # 1.71 X10^3/ul (0.83-4.51); Lymphocyte % 30.9 % (19-41); Mean Corp Hgb Conc 32.4 g/dL (32-36); Mean Corpuscular Hgb 30.6 pg (27.0-32.0); Mean Corpuscular Volume 94.5 fL (81-99); Mean Platelet Vol. 13.6 fl (6.2-12.0); Monocyte# 0.43 X10^3/uL; Monocyte% 7.8 % (0-10); NRBC Flagged by Analyzer 0 % (0-5); Neutrophil # 3.25 X10^3/uL (2.7-7.7); Neutrophil % 58.8 % (47-70); POSITIVE COUNT YES; Platelet Count 76 K/mm3 (150-450); RBC Distribution Width CV 14.9 % (11.6-14.6); RBC Distribution Width SD 50.7 fl (35.1-43.9); Red Blood Count 4.38 M/mm3 (4.2-5.4); White Blood Count 5.5 K/mm3 (4.4-11.0)
[2023-01-05 18:14] LABS: Vitamin B12 613 pg/mL (211-911); Vitamin D,25 Hydroxy 29.3 ng/mL
[2023-01-05 18:15] LABS: Hemoglobin A1c 4.9 % (3.8-5.6)
[2023-01-05 18:24] LABS: AST(SGOT) 28 U/L (15-37); Alanine Aminotransfer ALT/SGPT 51 U/L (13-56); Alkaline Phosphatase 123 U/L (45-117); Anion Gap 4 (5-15); BUN 13 mg/dL (7-18); BUN/Creat Ratio 14.5 RATIO (10-20); Calcium,Total 8.8 mg/dL (8.5-10.1); Chloride 105 mmol/L (98-107); Cholesterol 227 mg/dL (200); Creatinine, Serum 0.89 mg/dL (0.55-1.02); EST Glomerular Filtration Rate 68 mL/min (>60); Est Glom Filt Rate - Afr Amer 82 mL/min (>60); Ferritin 348 ng/mL (8-252); Globulin 3.9 g/dL (2.2-4.2); Glucose 103 mg/dL (74-106); High Density Lipoprotein 33 mg/dL; Magnesium 2.5 mg/dL (1.6-2.6); Potassium 3.7 mmol/L (3.5-5.1); Protein, Total 7.9 g/dL (6.4-8.2); Sodium Level 140 mmol/L (136-145); Thyroid Stim Hormone (TSH) 1.44 uIU/mL (0.358-3.74); Triglycerides 514 mg/dL
== END | disposition home or self-care (01) ==
LOC: MFPLAB 16:23
PROVIDERS: PCP Family Medicine; Visit Provider Family Medicine
DX: R53.83 Other fatigue (principal); D69.3 Immune thrombocytopenic purpura; E03.9 Hypothyroidism, unspecified; E78.2 Mixed hyperlipidemia
CPT/HCPCS: 36415; 80053; 80061; 82306; 82607; 82728; 83036; 83735; 84443; 85025

== ENCOUNTER → 2023-06-19 | Outpatient (CLI) | payer OTHER, SELFPAY ==
--- NOTE | 2023-06-19 15:45 | RAD_ITS ---
EXAM: XR RIGHT KNEE COMPLETE, 4 OR MORE VIEWS CLINICAL INDICATION: Acute right knee pain TECHNIQUE: Four or more views of the right knee. COMPARISON: No relevant prior studies available. FINDINGS: BONES/JOINTS: Unremarkable. No acute fracture. No subluxation. Normal alignment. Preservation of the joint space. No sclerotic or destructive changes observed. SOFT TISSUES: Unremarkable. No soft tissue swelling or gas. No radiopaque foreign body. RAD/Knee 4 or More Views IMPRESSION: Negative right knee x-rays. Electronically Signed: Jamaal De La Cruz MD at 0:10 EDT ,
== END | disposition home or self-care (01) ==
LOC: MTRAD 15:40
PROVIDERS: PCP Family Medicine; Referring Provider Family Medicine; Visit Provider Family Medicine
DX: M25.561 Pain in right knee (principal)
CPT/HCPCS: 73564

== ENCOUNTER → 2024-04-14 | Outpatient (CLI) | payer OTHER, SELFPAY ==
--- NOTE | 2024-04-14 14:45 | RAD_ITS ---
HISTORY: Back injury. TECHNIQUE: XR Spine Lumbar 2 or 3 Views. COMPARISON: None. FINDINGS: VERTEBRAE: Vertebral body heights preserved. Posterior elements appear intact. ALIGNMENT: No significant anterior or posterior subluxation. INTERVERTEBRAL DISCS: Mild degenerative changes with intervertebral disc space narrowing of L4-5 and L5-S1. RAD/Lumbar Spine 2 or 3 Views IMPRESSION: No acute fracture or dislocation identified in the lumbar spine. Mild degenerative change of the lower lumbar spine. Electronically Signed: Kassidy Srinivasan MD at 9:49 EST ,
== END | disposition home or self-care (01) ==
PROVIDERS: PCP Family Medicine; Referring Provider Family Medicine; Visit Provider Family Medicine
DX: S39.92XA Unspecified injury of lower back, initial encounter (principal)
CPT/HCPCS: 72100

== ENCOUNTER 2024-05-07 11:09 | Emergency (ER) | payer OTHER, SELFPAY ==
[2024-05-07 11:10] VITALS: BP 144/83; PULSE 90; RESP 16; TEMP 36.9; O2SAT 98; BMI 37.1
--- NOTE | 2024-05-07 11:29 | EKG12_ITS ---
Test Reason : FALL Blood Pressure : */* mmHG Vent. Rate : 92 BPM Atrial Rate : 92 BPM P-R Int : 140 ms QRS Dur : 84 ms QT Int : 348 ms P-R-T Axes : 49 2 22 degrees QTcB Int : 430 ms Normal sinus rhythm Normal ECG Confirmed by RUSH STONE, JERRELL ([id number]), advertising editor CATRACHITO BAEZA ([id number]) on 05/09/2024 8:17:45 AM Referred By: Confirmed By: JERRELL BEVERLY MD
--- NOTE | 2024-05-07 11:30 | CT_ITS ---
PROCEDURE: SPINE CERVICAL WITHOUT CONTRAS REASON FOR EXAM: Trauma TECHNIQUE: Cervical spine CT without contrast. COMPARISON: None. FINDINGS: Alignment: Normal Vertebrae: No acute fracture Soft Tissues: Unremarkable C1-2: Normal alignment. Dens appears intact. C2-3: Unremarkable C3-4: Unremarkable C4-5: Unremarkable C5-6: Unremarkable C6-7: Unremarkable C7-T1: Unremarkable CT/Spine Cervical without Contras IMPRESSION: No acute CT process in the cervical spine. One or more dose reduction techniques were used (e.g., Automated exposure contr ol, adjustment of the mA and/or kV according to patient size, use of iterative reconstruction technique). [facility]
--- NOTE | 2024-05-07 11:30 | CT_ITS ---
EXAM: BRAIN/HEAD WITHOUT CONTRAST CLINICAL HISTORY: Trauma COMPARISON: None. TECHNIQUE: Noncontrast images of the head with multiplanar reconstructions. Dose reduction techniques were used including intermediate exposure control (AEC),iterative reconstruction technique, and/or mA and/or KV dose adjustments based on patient's size. FINDINGS: CT HEAD FINDINGS: No acute intracranial hemorrhage, mass, mass effect, midline shift or pathologic extra-axial fluid collection. No hydrocephalus. Age- appropriate cerebral volume and white matter. Visualized paranasal sinuses and mastoid air cells are clear. The calvarium is grossly intact. CT/Brain/Head without Contrast IMPRESSION: No CT evidence of acute intracranial pathology. Reading Location: [facility]
--- NOTE | 2024-05-07 11:30 | CT_ITS ---
PROCEDURE: CT CHEST, ABD, PEL W/CONTRAST REASON FOR EXAM: Trauma TECHNIQUE: Chest CTA with intravenous contrast and 3D reconstructions. Abdomen and pelvis CT using the same contrast dose. COMPARISON: None. FINDINGS: CHEST: Lines and tubes: None. Mediastinum: No evidence of mediastinal hemorrhage. Heart: Normal heart size. No pericardial effusion. Coronary artery calcifications are noted. Thoracic Aorta: No evidence of acute traumatic aortic injury. Lungs and Airways: The lungs are normally expanded and clear. Pleura: No pleural effusion. No pneumothorax. Bones: No acute osseous abnormality identified. ABDOMEN AND PELVIS: Liver: 1.7 cm peripherally enhancing mass right hepatic lobe. Gallbladder: Unremarkable. Spleen: Unremarkable. Pancreas: Unremarkable. Adrenals: Unremarkable. Kidneys: Unremarkable. Bladder: Unremarkable. Reproductive Organs: Unremarkable. Bowel: Unremarkable. Diverticulosis. Normal appendix. Vasculature: Major vascular structures are unremarkable. Peritoneum / Retroperitoneum: No free fluid. No free air. Bones: No acute osseous abnormality identified. CT/CT Chest, Abd, Pel w/Contrast IMPRESSION: No acute CT process. Indeterminate 1.7 cm right hepatic mass overwhelmingly likely to represent a be nign hemangioma. Regardless, this is not definitive and outpatient liver ultrasound is advised for confirmation and foll ow-up. One or more dose reduction techniques were used (e.g., Automated exposure contr ol, adjustment of the mA and/or kV according to patient size, use of iterative reconstruction technique). Reading Location: [facility]
--- NOTE | 2024-05-07 11:32 | EX.ED.DYSGE1 ---
HPI History of Present Illness Chief Complaint: Fall Narrative Narrative: Patient is a 63-year-old female with a past medical history of factor V Leiden, idiopathic thrombocytopenia, anxiety, hypothyroidism who presented to the emerged part with a chief complaint of fall. Patient states that she slipped on ice fell backwards hit her head and did not pass out. States that she did not lose consciousness and denies any blood thinning medications. Patient states that she does have a headache and is nauseous. States that originally after the fall when she attempted to open her eyes she felt that she may passed out however states that this is improved since arriving here. Patient states that she is overall sore and has no specific pain at this point time. [facility] Medical History Factor V deficiency CPAP (continuous positive airway pressure) dependence Sleep apnea Wears glasses Anxiety COVID History of renal disease Anemia Hepatitis Blood disorder Easy bruising Excessive bleeding Back pain Difficulty swallowing History of hiatal hernia Gastric reflux Non-smoker Shortness of breath on exertion Leg cramps History of edema History of echocardiogram History of stress test Cardiology follow-up encounter Tilt table evaluation History of irregular heartbeat Rectal polyp removal Hemangioma of liver Splenomegaly Factor 5 Leiden mutation, heterozygous Hypothyroidism Thrombocytopenia Home Medications ?Medication ?Instructions ?Recorded ?Last Taken ?Type levothyroxine 100 mcg tablet 75 mcg PO DAILY 09/18/21 10/02/22 History cholecalciferol (vitamin D3) 25 25 mcg PO DAILY 10/09/21 10/01/22 History mcg (1,000 unit) capsule (Vitamin D3) lactobacillus combination no.4 3 3,000 mmu cells PO DAILY 10/09/21 10/01/22 History billion cell capsule (Probiotic) multivitamin 1 tab PO DAILY 10/09/21 10/01/22 History omega 3 350 mg-dha 235 mg-epa 90 1 cap PO DAILY 10/09/21 10/01/22 History mg-fish oil 597 mg capsule,delay rel (Blackstone-3) cyclobenzaprine 5 mg tablet 5 mg PO TID PRN muscle spasm #14 05/07/24 Unknown Rx tabs Allergy/AdvReac Type Severity Reaction Status Date / Time hexachlorophene (From Allergy Itching Verified 05/07/24 11:13 Phisohex) codeine AdvReac Chest Verified 05/07/24 11:13 tightness nitrofurantoin AdvReac Nausea Verified 05/07/24 11:13 macrocrystalline (From Macrodantin) Family History Mother Lupus Arthritis Anemia Hypertension Heart disease Autoimmune hepatitis Father Skin cancer Hypertension Heart disease Aneurysm Surgical History Hx of colonoscopy History of esophagogastroduodenoscopy (EGD) History of dilation and curettage History of lumpectomy History of hysterectomy History of cholecystectomy History of section Social History Smoking Status: Never smoker second hand exposure: No alcohol intake: never substance use type: does not use ROS ROS ED ROS Narrative Constitutional: Pleasant headache as noted above denies dizziness, fevers or chills Eyes: Denies change in vision double vision blurry vision Cardiovascular: Denies chest pain or palpitations Respiratory: Denies coughing wheezing shortness of breath Abdomen: Complains of nausea as noted above denies vomiting or diarrhea : Denies any urinary symptoms Neurological: Denies numbness, weakness, tingling Musculoskeletal: States that she has chronic lower back pain that she is being worked up for currently with MRI scheduled in the near future Skin: Denies any rashes or lesions EXAM Physical Exam Narrative Exam Narrative: General: Patient lying in bed rest comfortably did not appear to be in acute distress Head: Atraumatic, normocephalic Eyes: PERRL bilaterally, EOMI bilaterally, no conjunctival injection noted Neck: Soft and supple, trachea midline Cardiovascular: Regular rate and rhythm no murmurs gallops rubs noted Respiratory: Clear to auscultation bilaterally Abdomen: Soft, nondistended, nontender to palpation, bowel sounds present x 4 Musculoskeletal: Mild tenderness palpation midline of the thoracic spine no step-offs or deformities noted, no tense palpation midline cervical spine or the lumbar spine, patient has tenderness palpation over the ribs bilaterally. Although bony prominences and joints taken through full range of motion no pain elicited Extremities: Radial pulses +2/4 in the bilateral per extremities, +5/5 strength noted in the bilateral upper and lower extremities Neurological: Patient following commands knew that she was at [facility] year is 2024 sensation grossly intact Skin: Warm, dry, intact no rashes or lesions noted Const Vital Signs: 05/07/24 11:10 05/07/24 11:14 05/07/24 13:10 Temperature 98.4 F Temperature Source Oral Pulse Rate 90 63 Respiratory Rate 16 Respiratory Effort Normal Non-Labored Respiratory Depth Normal Respiratory Pattern Normal Blood Pressure 144/83 H 128/77 H Blood Pressure Mean 103 94 Pulse Ox 98 98 Oxygen Delivery Method Room Air Room Air Oxygen Flow Rate (L/min) 98 MDM MDM MDM Narrative Medical decision making narrative: Patient is a 63-year-old female who presents to the emergency department after slipping on ice and falling hitting her head. On the differential diagnose includes but not limited to intracranial hemorrhage, cervical spine fracture, thoracic/lumbar vertebral body fracture, rib fracture. Once workup is obtained and reviewed she will be reevaluated. Patient given Tylenol and Zofran Patient's CBC reviewed showed no evidence leukocytosis white blood count was normal at 5.9, hemoglobin is 14.4, plate count was noted to be 83 she chronically has thrombocytopenia secondary to her ITP, INR normal 1.1, PT of 14.6. Patient sodium normal 138, potassium normal at 3.9, creatinine was normal at 0.90. Patient's AST and ALT were 25 [address] head and brain without contrast showed no acute intracranial pathology. Patient CT cervical spine reviewed showed no acute processes in cervical spine. Patient CT abdomen pelvis as well as chest with contrast reviewed and showed no acute processes there is an indeterminate 1.7 cm right hepatic mass overwhelmingly likely to represent a benign hemangioma but they are recommending outpatient ultrasound this was provided to the patient hard copy and encouraged to take this to her primary care physician for this test to be performed. Patient's EKG reviewed and independently interpreted by myself as well which showed sinus rhythm with a rate of 92 bpm. I did discuss results with the patient she would like to go home at this point time. She was advised to rotate Tylenol and ibuprofen [id number] as well as use ice. She is encouraged return with worsening symptoms or any concerns. She is agreeable to plan as well as family was bedside all question concerns answered she was discharged home in stable condition. Lab Data Labs: Laboratory Results - last 24 hr 05/07/24 11:40 WBC 5.9 RBC 4.73 Hgb 14.4 Hct 42.5 MCV 89.9 MCH 30.4 MCHC 33.9 RDW Std Deviation 45.7 H RDW Coeff of Mckenzie 14.0 Plt Count 83 L MPV 12.7 H Immature Gran % (Auto) 1.000 H Neut % (Auto) 65.8 Lymph % (Auto) 22.5 [place] % (Auto) 9.4 Eos % (Auto) 1.0 Baso % (Auto) 0.3 Absolute Neuts (auto) 3.9 Absolute Lymphs (auto) 1.32 Nucleated RBC % 0 Platelet Estimate MOD DEC PT 14.6 INR 1.1 APTT 28.0 Sodium 138 Potassium 3.9 Chloride 106 Carbon Dioxide 26.0 Anion Gap 6 BUN 16 Creatinine 0.90 Estim Creat Clear Calc 67.62 Est GFR (MDRD) Af Amer 81 Est GFR (MDRD) Non-Af 67 BUN/Creatinine Ratio 17.7 Glucose 129 H Calcium 8.8 Total Bilirubin 1.00 Direct Bilirubin 0.18 AST 25 ALT 44 Alkaline Phosphatase 142 H Total Protein 8.0 Albumin 3.8 Globulin 4.2 Radiography Diagnostic Testing: Clinical Impression(s) from Imaging Studies Brain CT 05/07/24 11:30 IMPRESSION: No CT evidence of acute intracranial pathology. Reading Location: [facility] Cervical Spine CT 05/07/24 11:30 IMPRESSION: No acute CT process in the cervical spine. One or more dose reduction techniques were used (e.g., Automated exposure control, adjustment of the mA and/or kV according to patient size, use of iterative reconstruction technique). Reading Location: [facility] Chest/Abdomen/Pelvis CT 05/07/24 11:30 IMPRESSION: No acute CT process. Indeterminate 1.7 cm right hepatic mass overwhelmingly likely to represent a benign hemangioma. Regardless, this is not definitive and outpatient liver ultrasound is advised for confirmation and follow-up. One or more dose reduction techniques were used (e.g., Automated exposure control, adjustment of the mA and/or kV according to patient size, use of iterative reconstruction technique). Reading Location: [facility] Discharge Plan Triage Chief Complaint: Fall ED Provider: Gerald Childs Dx/Rx/DC Orders Clinical Impression: Fall, Chronic ITP (idiopathic thrombocytopenia), Factor 5 Leiden mutation, heterozygous Prescriptions: New cyclobenzaprine 5 mg tablet 5 mg PO TID PRN (Reason: muscle spasm) Qty: 14 0RF No Action levothyroxine 100 mcg tablet 75 mcg PO DAILY multivitamin [Multiple Vitamin] Tablet 1 tab PO DAILY cholecalciferol (vitamin D3) [Vitamin D3] 25 mcg (1,000 unit) Capsule 25 mcg PO DAILY Probiotic 3 billion cell Capsule 3,000 mmu cells PO DAILY Rx Instructions: administer with a meal Blackstone-3 350 mg-235 mg- 90 mg-597 mg Capsule,Delayed Release(Dr/Ec) 1 cap PO DAILY Primary Care Provider: Bertin Abdalla Referrals: Bertin Abdalla MD [Primary Care Provider] - Activity Restrictions/Additional Instructions: Rotate Tylenol and ibuprofen [id number] for pain control use the muscle relaxer as prescribed do not operate anything of the influence of the muscle relaxer will make you sleepy. Use ice on your head. Follow-up your primary care physician take the ultrasound results that were given to you as a copy for them to order the appropriate test as recommended by the radiologist. Return with worsening symptoms or any concerns. Print Language: Chinese Disposition Disposition: Home, Self Care
[2024-05-07] MEDS: Acetaminophen 500 MG Tablet 1000 MG PO (11:35)
[2024-05-07] MEDS: Ondansetron 4 MG/2 ML Vial IV (11:35)
[2024-05-07 11:56] LABS: International Normalized Ratio 1.1; Prothrombin Time (Protime)PT. 14.6 SECONDS (11.7-14.9)
[2024-05-07 12:04] LABS: AST(SGOT) 25 U/L (15-37); Alanine Aminotransfer ALT/SGPT 44 U/L (13-56); Albumin, Serum 3.8 g/dL (3.2-5.0); Alkaline Phosphatase 142 U/L (45-117); Anion Gap 6 (5-15); BUN 16 mg/dL (7-18); BUN/Creat Ratio 17.7 RATIO (10-20); Bilirubin, Direct 0.18 mg/dL (0.00-0.30); Calcium,Total 8.8 mg/dL (8.5-10.1); Chloride 106 mmol/L (98-107); EST Glomerular Filtration Rate 67 mL/min (>60); Est Glom Filt Rate - Afr Amer 81 mL/min (>60); Estimated Creatinine Clearance 67.62 ml/min; Globulin 4.2 g/dL (2.2-4.2); Glucose 129 mg/dL (74-106); Potassium 3.9 mmol/L (3.5-5.1); Sodium Level 138 mmol/L (136-145)
[2024-05-07 12:24] LABS: Absolute Lymphocyte Count 1.32 X10^3/uL (0.83-4.51); Absolute Neutrophil Count 3.9 X10^3/uL (2.0-7.7); Basophil# 0.02 X10^3/uL; Basophil% 0.3 % (0-1); Eosinophil# 0.06 X10^3/uL; Hematocrit 42.5 % (37-47); Hemoglobin 14.4 g/dL (12.0-15.0); Lymphocyte # 1.32 X10^3/ul (0.83-4.51); Lymphocyte % 22.5 % (19-41); Mean Corp Hgb Conc 33.9 g/dL (32-36); Mean Corpuscular Hgb 30.4 pg (27.0-32.0); Mean Corpuscular Volume 89.9 fL (81-99); Mean Platelet Vol. 12.7 fl (6.2-12.0); Monocyte# 0.55 X10^3/uL; Monocyte% 9.4 % (0-10); NRBC Flagged by Analyzer 0 % (0-5); Neutrophil # 3.85 X10^3/uL (2.7-7.7); Neutrophil % 65.8 % (47-70); POSITIVE COUNT YES; Platelet Count 83 K/mm3 (150-450); RBC Distribution Width SD 45.7 fl (35.1-43.9); Red Blood Count 4.73 M/mm3 (4.2-5.4); White Blood Count 5.9 K/mm3 (4.4-11.0)
[2024-05-07 12:25] LABS: Differential Indicated SCAN CRITERIA MET
[2024-05-07 12:52] LABS: Platelet Estimate MOD DEC (ADEQ)
[2024-05-07 13:10] VITALS: BP 128/77; PULSE 63; O2SAT 98
[2024-05-07 14:17] VITALS: BP 128/77; PULSE 63; RESP 16; TEMP 37.2; O2SAT 98
== END 2024-05-07 14:35 | disposition home or self-care (01) ==
PROVIDERS: Emergency Provider Emergency Medicine; PCP Family Medicine; Visit Provider Emergency Medicine
DX: D69.3 Immune thrombocytopenic purpura (principal); D68.51 Activated protein C resistance; D18.03 Hemangioma of intra-abdominal structures; W00.9XXA Unspecified fall due to ice and snow, initial encounter; Z86.16 Personal history of COVID-19
CPT/HCPCS: 70450; 71260; 72125; 74177; 80048; 80076; 85025; 85610; 85730; 93005; 96374; 99285; Q9967; A4216; J2405

== ENCOUNTER → 2024-05-15 | Outpatient (CLI) | payer OTHER, SELFPAY ==
--- NOTE | 2024-05-15 11:56 | MRI_ITS ---
PROCEDURE: SPINE LUMBAR (ROUTINE) REASON FOR EXAM: Pain TECHNIQUE: Lumbar spine MRI without intravenous gadolinium-based contrast. COMPARISON: Correlation made to radiograph performed on April 14, 2024. FINDINGS: Vertebrae: Lumbar vertebral body heights are preserved. Bone marrow signal is unremarkable. Alignment: Normal. No spondylolisthesis. Conus Medullaris: Normally positioned. L1-2: Unremarkable L2-3: Unremarkable L3-4: Unremarkable L4-5: Mild broad-based disc bulge with ventral thecal sac indentation without appreciable neural foraminal stenotic change. Mild disc desiccation. L5-S1: Mild broad-based disc bulge with ventral thecal sac indentation without appreciable neural foraminal stenotic change. Sacrum: Visualized upper sacrum and SI joints are unremarkable. MRI/Spine Lumbar (Routine) IMPRESSION: No acute MR process. Mild lumbosacral spondylolysis particularly at L4-L5 and L5-S1. Reading Location[facility]
== END | disposition home or self-care (01) ==
PROVIDERS: PCP Family Medicine; Referring Provider Family Medicine; Visit Provider Family Medicine
DX: M54.32 Sciatica, left side (principal)
CPT/HCPCS: 72148

== ENCOUNTER → 2024-05-24 | Outpatient (CLI) | payer OTHER, SELFPAY ==
--- NOTE | 2024-05-24 16:50 | RAD_ITS ---
PROCEDURE: CHEST PA AND LATERAL REASON FOR EXAM: Left chest trauma TECHNIQUE: Frontal and lateral views of the chest. COMPARISON: 03/20/2020 FINDINGS: The heart size is normal. The mediastinal contour is unremarkable. The lungs are clear. The bones are unremarkable. RAD/Chest PA and Lateral IMPRESSION: No radiographic evidence of acute cardiopulmonary disease Reading Location: [facility]
== END | disposition home or self-care (01) ==
LOC: MTRAD 16:50
PROVIDERS: PCP Family Medicine; Referring Provider Family Medicine; Visit Provider Family Medicine
DX: S29.9XXA Unspecified injury of thorax, initial encounter (principal)
CPT/HCPCS: 71046

== ENCOUNTER → 2024-06-24 | Outpatient (CLI) | payer OTHER, SELFPAY ==
--- NOTE | 2024-06-24 08:14 | CT_ITS ---
PROCEDURE: CTA CHEST W/WO CONTRAST 06/24/2024 REASON FOR EXAM: SOB Following a recent fall. TECHNIQUE: CTA axial imaging of the chest with intravenous contrast. Coronal, Sagittal and 3D with MIP reconstruction series were provided. PATIENT PREPARATION: Per protocol CONTRAST: Isovue-300 VOLUME: 100mL One or more dose reduction techniques were used (e.g., Automated exposure control, adjustment of the mA and/or kV according to patient size, use of iterative reconstruction technique). RADIATION DOSE SUMMARY: CTDlvol: 13 mGy DLP: 409.41 mGycm . COMPARISON: Chest x-ray dated May 21, 2024. FINDINGS: Hardware: None Lymph nodes: Unremarkable Heart: Unremarkable RV/LV Diameter Ratio: One-to-one Thoracic Aorta: Unremarkable Pulmonary Vessels: No large central pulmonary emboli are identified. Contrast timing is suboptimal for evaluation of more distal branches. Most Proximal Level of Embolus (if embolus present): Lungs and Airways: Unremarkable Pleura: Unremarkable Upper Abdomen: Fatty infiltration of the liver. Status post cholecystectomy. Small hiatal hernia. Bones: Unremarkable CT/CTA Chest W/WO Contrast IMPRESSION: No acute abnormality is seen. Reading Location: [facility]
== END | disposition home or self-care (01) ==
LOC: CT 08:05
PROVIDERS: PCP Family Medicine; Referring Provider Family Medicine; Visit Provider Family Medicine
DX: R06.02 Shortness of breath (principal)
CPT/HCPCS: 71275; Q9967; A4216